=== PATIENT | male | born 1950 | race Caucasian/White ===

== ENCOUNTER 2020-07-18 16:02 | Outpatient (REF) | payer MEDICARE, SELFPAY | END 2020-07-18 16:03 | disposition home or self-care (01) | LOC: HO.LAB 16:02 | PROVIDERS: Visit Provider Nurse Practitioner Family | DX: N39.0 Urinary tract infection, site not specified (principal) | CPT/HCPCS: 87086; 87088; 87186 ==

== ENCOUNTER → 2020-11-13 14:53 | Outpatient (BNVA) | payer MEDICARE, SELFPAY | PROVIDERS: PCP Internal Medicine; Referring Provider Internal Medicine; Visit Provider Nurse Practitioner Family | DX: R09.89 Other specified symptoms and signs involving the circulatory and respiratory systems (principal); R06.02 Shortness of breath; Z98.890 Other specified postprocedural states | CPT/HCPCS: 93005; 99212 ==

== ENCOUNTER 2020-11-28 14:24 | Outpatient (REF) | payer MEDICARE, SELFPAY ==
--- NOTE | ~2020-11-28 | US_ITS ---
EXAMINATION: US EXTRACRANIAL CAROTID DUPLEX, BILATERAL CLINICAL INFORMATION: Carotid bruit. COMPARISON: None TECHNIQUE: Real-time ultrasound and Doppler techniques (integrating B-mode 2-D vascular images, Doppler spectral analysis and color-flow Doppler imaging) were utilized to interrogate the extracranial carotid arteries, the vertebral arteries and proximal subclavian arteries bilaterally. The degree of stenosis is determined by criteria similar to NASCET. FINDINGS: Right Side: 1. There is no atherosclerotic plaque seen in the bifurcation/proximal ICA region. 2. The common carotid artery PSV proximally is 105 cm/s and distally 79 cm/s. 3. The proximal internal carotid artery velocities are 84 cm/s systolic and 30 cm/s diastolic. 4. The proximal external carotid artery PSV is 116 cm/s. 5. The vertebral artery shows antegrade flow. 6. The subclavian artery waveforms are normal. Left Side: 1. There is no atherosclerotic plaque seen in the bifurcation/proximal ICA region. 2. The common carotid artery PSV proximally is 111 cm/s and distally 86 cm/s. 3. The proximal internal carotid artery velocities are 60 cm/s systolic and 23 cm/s diastolic. 4. The proximal external carotid artery PSV is 88 cm/s. 5. The vertebral artery shows antegrade flow. 6. The subclavian artery waveforms are normal. US/US carotid duplex BI IMPRESSION: 1. RIGHT: Normal right internal carotid artery without atherosclerotic plaque or hemodynamically significant stenosis. 2. LEFT: Normal left internal carotid artery without atherosclerotic plaque or hemodynamically significant stenosis.
== END 2020-11-28 14:25 | disposition home or self-care (01) ==
LOC: HO.US 14:24
PROVIDERS: PCP Internal Medicine; Visit Provider Nurse Practitioner Family
DX: R09.89 Other specified symptoms and signs involving the circulatory and respiratory systems (principal); R06.02 Shortness of breath
CPT/HCPCS: 93880

== ENCOUNTER 2021-10-05 11:12 | Outpatient (REF) | payer MEDICARE, SELFPAY ==
[2021-10-05 13:47] LABS: MANUAL DIFF FLAG NO
[2021-10-05 13:49] LABS: Basophils Percent Auto 0.8 % (0-2); Eosinophils Absolute Auto 0.1 X10*3/uL (0.0-0.4); Eosinophils Percent Auto 1.7 % (0-4); Hemoglobin 14.6 g/dl (14.0-18.0); Imm Gran Abs Auto 0.02 X10*3/uL (0.00-0.03); Imm Gran Pct Auto 0.4 % (0.0-0.4); Lymphocytes Absolute Auto 1.1 X10*3/uL (1.2-4.9); Lymphocytes Percent Auto 20.7 % (20-40); Mean Corpuscular HGB Conc 33.2 g/dl (31.0-36.0); Mean Corpuscular Hemoglobin 29.7 pg (27.0-33.0); Mean Corpuscular Volume 89.4 fL (80.0-98.0); Mean Platelet Volume 10.9 fL (9.4-12.4); Monocytes Absolute Auto 0.5 X10*3/uL (0.1-1.2); Neutrophils Absolute Auto 3.5 x10*3/uL (2.0-8.3); Neutrophils Percent Auto 67.4 % (45-73); Platelet Count 219 X10*3/uL (160-400); Red Blood Count 4.92 X10*6/uL (4.60-5.80); Red Cell Distribution Width 13.7 % (11.0-16.0); White Blood Count 5.2 X10*3/uL (4.8-10.8)
[2021-10-05 14:03] LABS: Alanine Aminotransferase 16 U/L (0-40); Albumin Level 4.1 g/dL (3.5-5.0); Alkaline Phosphatase 94 U/L (39-117); Anion Gap 11 (12-20); Aspartate Amino Transferase 18 U/L (5-37); Bilirubin Total 0.9 mg/dL (0.0-1.0); Blood Urea Nitrogen 25 mg/dL (9-16); Calcium 9.2 mg/dL (8.4-10.2); Carbon Dioxide 26 mmol/L (22-29); Chloride 109 mmol/L (96-108); Cholesterol 190 mg/dL; Estimated Glomerular Filt Rate > 60; Glucose Fasting 115 mg/dL (60-99); HDL Cholesterol 39 mg/dL; LDL Cholesterol Calculated 139 mg/dl; Sodium 141 mmol/L (135-145); Total Protein 6.8 g/dL (6.5-8.0); Triglycerides 62 mg/dL
[2021-10-05 14:26] LABS: Prostate Specific Antigen 0.81 ng/mL (<0.05-4.0); TSH reflex Free T4 1.32 uIU/mL (0.32-4.0)
== END 2021-10-05 11:13 | disposition home or self-care (01) ==
LOC: HO.HMGCLDS 11:12
PROVIDERS: PCP Internal Medicine; Visit Provider Internal Medicine
DX: Z00.01 Encounter for general adult medical examination with abnormal findings (principal); Z12.5 Encounter for screening for malignant neoplasm of prostate; D22.9 Melanocytic nevi, unspecified; E66.09 Other obesity due to excess calories; R03.0 Elevated blood-pressure reading, without diagnosis of hypertension
CPT/HCPCS: 36415; 80053; 80061; 84153; 84443; 85025

== ENCOUNTER 2022-01-11 13:25 | Outpatient (REF) | payer MEDICARE, SELFPAY ==
[2022-01-11 16:47] LABS: Estimated Average Glucose 114 mg/dL; Hemoglobin A1c % 5.6 %
[2022-01-11 16:53] LABS: Alanine Aminotransferase 14 U/L (0-40); Albumin Level 4.3 g/dL (3.5-5.0); Alkaline Phosphatase 97 U/L (39-117); Anion Gap 15 (12-20); Aspartate Amino Transferase 15 U/L (5-37); Bilirubin Total 0.6 mg/dL (0.0-1.0); Blood Urea Nitrogen 28 mg/dL (9-16); Calcium 9.8 mg/dL (8.4-10.2); Carbon Dioxide 26 mmol/L (22-29); Chloride 106 mmol/L (96-108); Estimated Glomerular Filt Rate > 60; Glucose Random 94 mg/dL (60-115); Potassium 4.8 mmol/L (3.3-5.1); Sodium 142 mmol/L (135-145); Total Protein 6.9 g/dL (6.5-8.0)
== END 2022-01-11 13:26 | disposition home or self-care (01) ==
LOC: HO.HMGCLDS 13:25
PROVIDERS: PCP Internal Medicine; Visit Provider Internal Medicine
DX: I10 Essential (primary) hypertension (principal); R73.01 Impaired fasting glucose
CPT/HCPCS: 36415; 80053; 83036

== ENCOUNTER 2022-10-04 09:33 | Outpatient (REF) | payer MEDICARE, SELFPAY ==
[2022-10-04 11:29] LABS: MANUAL DIFF FLAG NO
[2022-10-04 11:37] LABS: Basophils Percent Auto 0.6 % (0-2); Eosinophils Absolute Auto 0.1 X10*3/uL (0.0-0.4); Eosinophils Percent Auto 1.2 % (0-4); Hematocrit 42.8 % (42.0-52.0); Hemoglobin 14.4 g/dl (14.0-18.0); Imm Gran Abs Auto 0.03 X10*3/uL (0.00-0.03); Imm Gran Pct Auto 0.5 % (0.0-0.4); Lymphocytes Absolute Auto 1.2 X10*3/uL (1.2-4.9); Lymphocytes Percent Auto 18.2 % (20-40); Mean Corpuscular HGB Conc 33.6 g/dl (31.0-36.0); Mean Corpuscular Hemoglobin 30.1 pg (27.0-33.0); Mean Corpuscular Volume 89.5 fL (80.0-98.0); Mean Platelet Volume 11.1 fL (9.4-12.4); Monocytes Absolute Auto 0.4 X10*3/uL (0.1-1.2); Neutrophils Absolute Auto 4.8 x10*3/uL (2.0-8.3); Neutrophils Percent Auto 73.5 % (45-73); Platelet Count 208 X10*3/uL (160-400); Red Blood Count 4.78 X10*6/uL (4.60-5.80); White Blood Count 6.5 X10*3/uL (4.8-10.8)
[2022-10-04 12:08] LABS: Alanine Aminotransferase 13 U/L (0-40); Albumin Level 3.9 g/dL (3.5-5.0); Alkaline Phosphatase 92 U/L (39-117); Anion Gap 12 (12-20); Aspartate Amino Transferase 16 U/L (5-37); Blood Urea Nitrogen 21 mg/dL (9-16); Calcium 9.5 mg/dL (8.4-10.2); Carbon Dioxide 25 mmol/L (22-29); Chloride 108 mmol/L (96-108); Cholesterol 178 mg/dL; Estimated Glomerular Filt Rate > 60; Glucose Fasting 109 mg/dL (60-99); HDL Cholesterol 41 mg/dL; LDL Cholesterol Calculated 123 mg/dl; Potassium 4.3 mmol/L (3.3-5.1); Sodium 141 mmol/L (135-145); Total Protein 6.7 g/dL (6.5-8.0); Triglycerides 74 mg/dL
[2022-10-04 12:11] LABS: Estimated Average Glucose 108 mg/dL; Hemoglobin A1c % 5.4 %
== END 2022-10-04 09:34 | disposition home or self-care (01) ==
LOC: HO.HMGCLDS 09:33
PROVIDERS: PCP Internal Medicine; Visit Provider Internal Medicine
DX: Z00.01 Encounter for general adult medical examination with abnormal findings (principal); E66.09 Other obesity due to excess calories; R73.01 Impaired fasting glucose; I10 Essential (primary) hypertension
CPT/HCPCS: 36415; 80053; 80061; 83036; 85025

== ENCOUNTER 2023-03-21 08:06 | Outpatient (AMB) | payer MEDICARE, SELFPAY ==
[2023-03-21 08:10] VITALS: BP 126/74; PULSE 52; O2SAT 99; BMI 35.3
--- NOTE | 2023-03-21 08:10 | MHC.PC.OV ---
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 Accompanied by: Self / Same As Patient Allergies No Known Allergies [No Known Allergies*] Allergy (Verified 03/21/23 08:12) Medication List - Last Reconciled 03/21/23 by Raudel Jones MD atenolol 25 mg PO DAILY 90 days Tobacco use date assessed: 03/21/23 Fall risk assessment: No Falls in past year Last assessed Fall Risk: 03/21/23 Dental Screening Dental Screen Date: 03/21/23 Did you have a dental visit in the last 12 months?: No Did you have a dental problem in the last 6 months where you did not have access to dental care?: No Was dental information given to patient?: Patient declined HPI 6 month follow up HPI Details Patient is a 72-year-old gentleman came in today for six-month follow-up appointment on blood pressure He is taking atenolol 25 mg, blood pressure is stable heart rate is 52 His BMI is elevated at 35.9 and he tells me that he is trying to lose weight. Impaired fasting sugar stable, due for labs Continued to feel slight shortness of breath if he exerts himself like jogging happened mi or walking fast Patient had a cardiac workup and pulmonary function test done for that symptom and they were both negative. Follow-up 6 months [facility] Surgical History Hx of tonsillectomy History of cholecystectomy History of colonoscopy History of cardiac cath Family History Father CAD (coronary artery disease) Heart attack Mother Colon cancer Brother Diabetes Social History Housing: House Alcohol intake: current Alcohol intake frequency: holidays/special occasions only Alcohol type: beer and hard liquor Patient Tobacco Use Status: Former Tobacco user Quit Date: 1999 Years Smoked: 20 +/- e-Cigarette/Vaping Use: Never Used service: No Current occupational status: retired Cognitive needs: No Hearing needs: No Vision needs: Yes Questionnaire PHQ-9 Over the last 2 weeks, how often have you been bothered by any of the following problems? 1. Little interest or pleasure in doing things: not at all 2. Feeling down, depressed, or hopeless: not at all 3. Trouble falling or staying asleep, or sleeping too much: not at all 4. Feeling tired or having little energy: not at all 5. Poor appetite or overeating: not at all 6. Feeling bad about yourself - or that you are a failure or have let yourself or your family down: not at all 7. Trouble concentrating on things, such as reading the newspaper or watching television: not at all 8. Moving or speaking so slowly that other people could have noticed. Or the opposite - being so fidgety or restless that you have been moving around a lot more than usual: not at all 9. Thoughts that you would be better off or of hurting yourself in some way: not at all Total score: 0 Depression Screening Interpretation: Negative Depression Screening Done: Yes 34745 - PHQ-9 Billing: Yes Source: Developed by Drs. Alen River, Guillermina Meza, Zheng Nova and colleagues, with an educational alison from [employer]. Thrive Questionnaire Date Thrive assessed: 03/21/23 I am a: Patient What is your living situation today?: I have a steady place to live Within the past 12 months, did the food you bought not last and you didn't have the money to get more?: Never true Within the past 12 months, did you worry whether your food would run out before you got money to buy more?: Never true Do you have trouble paying for medicines?: No Do you have trouble getting transportation to medical appointments?: No Do you have trouble paying your heating and electricity bill?: No Do you have trouble taking care of your child, family member or friend?: No Do you have trouble with day-to-day activities such as bathing, preparing meals, shopping, managing finances, etc.?: No Are you currently unemployed and looking for a job?: No Are you interested in more education?: No Please select the resources that you would like help with: None Currently or been in a relationship where the following occur: no concerns reported AUDIT C Alcohol Use Questionnaire (AUDIT-C) 1. How often do you have a drink containing alcohol?: Monthly or less 2. How many drinks containing alcohol do you have on a typical day when you are drinking?: 1 or 2 3. How often do you have six or more drinks on one occasion?: Never Total Score: 1 Score Reviewed/Action Taken: Yes RUSSELL-7 AMB Questionnaire RUSSELL-7 Date RUSSELL - 7 assessed: 06/12/22 Feeling nervous, anxious, or on edge: 0 = Not at all Not being able to stop or control worryin = Not at all Worrying too much about different things: 0 = Not at all Trouble relaxin = Not at all Being so restless that it is hard to sit still: 0 = Not at all Becoming easily annoyed or irritable: 0 = Not at all Feeling afraid as if something awful might happen: 0 = Not at all Total RUSSELL-7 score (0-4 normal; 5-9 mild; 10-14 moderate; 15-21 severe): 0 Source: Developed by Drs. Alen River, Guillermina Meza, Zheng Nova and colleagues, with an educational alison from [employer]. RUSSELL-7 Assessment Billing RUSSELL-7 Assessment Tool: RUSSELL-7 Assessment 77166 Review of Systems Const Denies chills and Denies fever(s) ENT Denies epistaxis and Denies nasal discharge Card Denies chest pain Resp Denies chest congestion, Denies cough and Denies hemoptysis GI Denies diarrhea and Denies nausea Skin/Breast Denies rash Neuro Reports no additional complaints Psych Reports no additional complaints Endo Reports no additional complaints Physical exam (Primary Care) Vital Signs: Last Vital Signs Pulse 52 03/21/23 08:10 BP 126/74 03/21/23 08:10 Pulse Ox 99 03/21/23 08:10 Oxygen Delivery Method Room Air 03/21/23 08:10 BMI result Body Mass Index 35.3 Tobacco/Smoking Status: Tobacco use Status Tobacco use date assessed 03/21/23 03/21/23 08:15 Patient Tobacco Use Status Former Tobacco user 03/21/23 08:10 e-Cigarette/Vaping Use Never Used 03/21/23 08:10 PHQ-9: PHQ-9 Score PHQ-9: Total score 0 03/21/23 08:30 Depression Screening Interpretation: Negative Thrive Assessment: Date of Thrive Assessment Date Thrive assessed 03/21/23 03/21/23 08:15 Currently or been in a relationship where the following occur: no concerns reported Const General: cooperative, comfortable and no acute distress Orientation/consciousness: patient oriented x3 HENMT Head: Yes normocephalic Eyes General: appearance normal, both eyes and all related structures Neck Neck: Yes supple Resp Effort & Inspection: normal respiratory effort, no cough and no stridor Cardio Rhythm: regular rhythm Heart sounds: S1 normal heart sound present and S2 normal heart sound present Skin General skin exam: turgor normal Neuro General: patient oriented x3, tone normal and moves all extremities Extrem Right lower extremity: no edema Left lower extremity: no edema Assessment and Plan Assessment & Plan (1) Hypertension, essential: Code(s): I10 - Essential (primary) hypertension (2) Impaired fasting blood sugar: Code(s): R73.01 - Impaired fasting glucose (3) Obesity due to excess calories: Code(s): E66.09 - Other obesity due to excess calories Qualifiers: Body mass index: BMI 35.0-35.9 Obesity classification: adult class 2 (BMI 35 - 39.9) Serious obesity comorbidity presence: with serious comorbidity Qualified Code(s): E66.01 - Morbid (severe) obesity due to excess calories; Z68.35 - Body mass index [BMI] 35.0-35.9, adult (4) Shortness of breath: Code(s): R06.02 - Shortness of breath Plan Patient is a 72-year-old gentleman came in today for six-month follow-up appointment on blood pressure He is taking atenolol 25 mg, blood pressure is stable heart rate is 52 His BMI is elevated at 35.9 and he tells me that he is trying to lose weight. Impaired fasting sugar stable, due for labs Continued to feel slight shortness of breath if he exerts himself like jogging happened mi or walking fast Patient had a cardiac workup and pulmonary function test done for that symptom and they were both negative. Follow-up 6 months Orders: Orders Complete Blood Count Auto Diff 6 Months I10 - Essential (primary) hypertension, R73.01 - Impaired fasting glucose Comprehensive [place]. Panel Fast 6 Months I10 - Essential (primary) hypertension, R73.01 - Impaired fasting glucose Complete Blood Count Auto Diff Today E66.09 - Other obesity due to excess calories, I10 - Essential (primary) hypertension, R06.02 - Shortness of breath, R73.01 - Impaired fasting glucose Comprehensive [place]. Panel Fast Today E66.09 - Other obesity due to excess calories, I10 - Essential (primary) hypertension, R06.02 - Shortness of breath, R73.01 - Impaired fasting glucose Lipid Panel Today E66.09 - Other obesity due to excess calories, I10 - Essential (primary) hypertension, R06.02 - Shortness of breath, R73.01 - Impaired fasting glucose Lipid Panel 6 Months I10 - Essential (primary) hypertension, R73.01 - Impaired fasting glucose Medications: Refilled atenolol 25 mg PO DAILY 90 tabs 1RF 90 days Coding Level of Care Code Est Pt Level 3 (50490) Diagnoses Hypertension, essential I10 Impaired fasting blood sugar R73.01 Class 2 severe obesity due to excess calories with serious comorbidity and body mass index (BMI) of 35.0 to 35.9 in adult E66.01; Z68.35 Body mass index: BMI 35.0-35.9 Obesity classification: adult class 2 (BMI 35 - 39.9) Serious obesity comorbidity presence: with serious comorbidity Shortness of breath R06.02 Additional Codes RUSSELL-7 Assessment Billing - RUSSELL-7 Assessment Tool: RUSSELL-7 Assessment 53779 ([id number])
== END 2023-03-21 08:29 | disposition home or self-care (01) ==
PROVIDERS: PCP Internal Medicine; Visit Provider Internal Medicine
DX: I10 Essential (primary) hypertension (principal); R73.01 Impaired fasting glucose; E66.01 Morbid (severe) obesity due to excess calories; Z68.35 Body mass index [BMI] 35.0-35.9, adult; R06.02 Shortness of breath
CPT/HCPCS: 99213

== ENCOUNTER 2023-03-21 08:30 | Outpatient (REF) | payer MEDICARE, SELFPAY ==
[2023-03-21 11:19] LABS: MANUAL DIFF FLAG NO
[2023-03-21 11:26] LABS: Basophils Percent Auto 0.6 % (0-2); Eosinophils Absolute Auto 0.1 X10*3/uL (0.0-0.4); Eosinophils Percent Auto 1.5 % (0-4); Hematocrit 42.1 % (42.0-52.0); Hemoglobin 14.1 g/dl (14.0-18.0); Imm Gran Abs Auto 0.03 X10*3/uL (0.00-0.03); Imm Gran Pct Auto 0.4 % (0.0-0.4); Lymphocytes Absolute Auto 1.1 X10*3/uL (1.2-4.9); Lymphocytes Percent Auto 15.8 % (20-40); Mean Corpuscular HGB Conc 33.5 g/dl (31.0-36.0); Mean Corpuscular Hemoglobin 30.2 pg (27.0-33.0); Mean Corpuscular Volume 90.1 fL (80.0-98.0); Mean Platelet Volume 10.8 fL (9.4-12.4); Monocytes Absolute Auto 0.5 X10*3/uL (0.1-1.2); Monocytes Percent Auto 7.3 % (2-11); Neutrophils Absolute Auto 5.3 x10*3/uL (2.0-8.3); Neutrophils Percent Auto 74.4 % (45-73); Platelet Count 203 X10*3/uL (160-400); Red Blood Count 4.67 X10*6/uL (4.60-5.80); Red Cell Distribution Width 13.2 % (11.0-16.0); White Blood Count 7.2 X10*3/uL (4.8-10.8)
[2023-03-21 11:53] LABS: Alanine Aminotransferase 13 U/L (0-40); Alkaline Phosphatase 92 U/L (39-117); Anion Gap 14 (12-20); Aspartate Amino Transferase 16 U/L (5-37); Bilirubin Total 0.6 mg/dL (0.0-1.0); Blood Urea Nitrogen 21 mg/dL (9-16); Calcium 9.2 mg/dL (8.4-10.2); Carbon Dioxide 26 mmol/L (22-29); Chloride 108 mmol/L (96-108); Cholesterol 162 mg/dL (<200); Estimated Glomerular Filt Rate > 60; Glucose Fasting 113 mg/dL (60-99); HDL Cholesterol 42 mg/dL (>40); LDL Cholesterol Calculated 109 mg/dL (<100); Potassium 4.1 mmol/L (3.3-5.1); Sodium 144 mmol/L (135-145); Total Protein 6.9 g/dL (6.5-8.0); Triglycerides 58 mg/dL (<150)
== END 2023-03-21 08:31 | disposition home or self-care (01) ==
LOC: HO.HMGCLDS 08:30
PROVIDERS: PCP Internal Medicine; Visit Provider Internal Medicine
DX: I10 Essential (primary) hypertension (principal); R73.01 Impaired fasting glucose; E66.09 Other obesity due to excess calories; R06.02 Shortness of breath
CPT/HCPCS: 36415; 80053; 80061; 85025

== ENCOUNTER 2023-10-03 09:16 | Outpatient (REF) | payer MEDICARE, SELFPAY ==
[2023-10-03 11:21] LABS: MANUAL DIFF FLAG NO
[2023-10-03 11:26] LABS: Basophils Absolute Auto 0.1 X10*3/uL (0.0-0.2); Basophils Percent Auto 0.7 % (0-2); Eosinophils Absolute Auto 0.2 X10*3/uL (0.0-0.4); Eosinophils Percent Auto 1.8 % (0-4); Hematocrit 41.8 % (42.0-52.0); Imm Gran Abs Auto 0.06 X10*3/uL (0.00-0.03); Imm Gran Pct Auto 0.7 % (0.0-0.4); Lymphocytes Absolute Auto 1.6 X10*3/uL (1.2-4.9); Lymphocytes Percent Auto 17.7 % (20-40); Mean Corpuscular HGB Conc 33.5 g/dl (31.0-36.0); Mean Corpuscular Hemoglobin 29.9 pg (27.0-33.0); Mean Corpuscular Volume 89.3 fL (80.0-98.0); Mean Platelet Volume 10.1 fL (9.4-12.4); Monocytes Absolute Auto 0.6 X10*3/uL (0.1-1.2); Monocytes Percent Auto 6.1 % (2-11); Neutrophils Absolute Auto 6.7 x10*3/uL (2.0-8.3); Platelet Count 300 X10*3/uL (160-400); Red Blood Count 4.68 X10*6/uL (4.60-5.80); Red Cell Distribution Width 13.1 % (11.0-16.0); White Blood Count 9.1 X10*3/uL (4.8-10.8)
[2023-10-03 11:48] LABS: Alanine Aminotransferase 19 U/L (0-40); Alkaline Phosphatase 130 U/L (39-117); Anion Gap 11 (12-20); Aspartate Amino Transferase 18 U/L (5-37); Bilirubin Total 0.5 mg/dL (0.0-1.0); Blood Urea Nitrogen 27 mg/dL (9-16); Calcium 9.6 mg/dL (8.4-10.2); Carbon Dioxide 26 mmol/L (22-29); Chloride 107 mmol/L (96-108); Cholesterol 197 mg/dL (<200); Estimated Glomerular Filt Rate > 60; Glucose Fasting 107 mg/dL (60-99); HDL Cholesterol 45 mg/dL (>40); LDL Cholesterol Calculated 130 mg/dL (<100); Potassium 4.3 mmol/L (3.3-5.1); Sodium 140 mmol/L (135-145); Total Protein 7.3 g/dL (6.5-8.0); Triglycerides 112 mg/dL (<150)
== END 2023-10-03 09:17 | disposition home or self-care (01) ==
LOC: HO.HMGCLDS 09:16
PROVIDERS: PCP Internal Medicine; Visit Provider Internal Medicine
DX: R73.01 Impaired fasting glucose (principal); I10 Essential (primary) hypertension
CPT/HCPCS: 36415; 80053; 80061; 85025

== ENCOUNTER 2023-10-03 09:28 | Outpatient (AMB) | payer MEDICARE, SELFPAY ==
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
[2023-10-03 09:37] VITALS: BP 138/82; PULSE 62; O2SAT 98; BMI 36.3
== END 2023-10-03 10:36 | disposition home or self-care (01) ==
PROVIDERS: PCP Internal Medicine; Visit Provider Internal Medicine
DX: N28.89 Other specified disorders of kidney and ureter (principal); Z09 Encounter for follow-up examination after completed treatment for conditions other than malignant neoplasm; S28.0XXA Crushed chest, initial encounter; L03.115 Cellulitis of right lower limb; T07.XXXA Unspecified multiple injuries, initial encounter; S80.11XA Contusion of right lower leg, initial encounter; S80.12XA Contusion of left lower leg, initial encounter
CPT/HCPCS: 99215

== ENCOUNTER 2023-10-17 10:03 | Outpatient (AMB) | payer MEDICARE, SELFPAY ==
--- NOTE | 2023-10-17 10:05 | A.OFFPC_ITS ---
Vital Signs 10/17/23 10:06 Height 6 ft Weight 274 lb 8 oz BMI 37.2 BP 144/72 H Blood Pressure Location Rt brachial Position Sitting Pulse 55 Pulse Source Pulse Oximeter Pulse Oximetry (%) 95 Oxygen Delivery Method Room Air Intake Visit Reasons: annual PE Allergies No Known Allergies [No Known Allergies*] Allergy (Verified 10/17/23 10:06) Medication List - Last Reconciled 10/17/23 by Raudel Jones MD acetaminophen 325 mg PO QID PRN atenolol 25 mg PO DAILY 90 days Tobacco use date assessed: 10/17/23 Fall risk assessment: No Falls in past year Last assessed Fall Risk: 10/17/23 Dental Screening Dental Screen Date: 10/17/23 Did you have a dental visit in the last 12 months?: Yes Did you have a dental problem in the last 6 months where you did not have access to dental care?: No Was dental information given to patient?: Patient has dentist HPI annual PE HPI Details Patient is a 73-year-old gentleman came in today for physical exam Blood pressure is slightly elevated today, patient is on atenolol 25 mg Is monitoring it at home and it runs below 140 systolic he tells me Labs done recently reviewed Patient is prediabetic, fasting sugar came back at 01:07 Has recently encountered multiple crush injury at work He is recovering gradually Alkaline phosphatase is 130 LDL is 130 BMI is elevated patient is having difficulty losing weight In emergency room when he went after crush injuries Imaging showed 6 cm mass left kidney I ordered MRI abdomen which is still not done I have ordered stat ultrasound of kidneys He has appointment with Nephrology already scheduled for this month Patient is aware Colonoscopy was October of 2020 next 1 will be in 2025 Follow-up 6 months [facility] Surgical History Hx of tonsillectomy History of cholecystectomy History of colonoscopy History of cardiac cath Family History Father CAD (coronary artery disease) Heart attack Mother Colon cancer Brother Diabetes Social History Housing: House Alcohol intake: current Alcohol intake frequency: holidays/special occasions only Alcohol type: beer and hard liquor Patient Tobacco Use Status: Former Tobacco user Years Smoked: 20 +/- e-Cigarette/Vaping Use: Never Used service: No Current occupational status: retired Cognitive needs: No Hearing needs: No Vision needs: Yes Questionnaire PHQ-9 Over the last 2 weeks, how often have you been bothered by any of the following problems? 1. Little interest or pleasure in doing things: not at all 2. Feeling down, depressed, or hopeless: not at all 3. Trouble falling or staying asleep, or sleeping too much: not at all 4. Feeling tired or having little energy: not at all 5. Poor appetite or overeating: not at all 6. Feeling bad about yourself - or that you are a failure or have let yourself or your family down: not at all 7. Trouble concentrating on things, such as reading the newspaper or watching television: not at all 8. Moving or speaking so slowly that other people could have noticed. Or the opposite - being so fidgety or restless that you have been moving around a lot more than usual: not at all 9. Thoughts that you would be better off or of hurting yourself in some way: not at all Total score: 0 Depression Screening Interpretation: Negative Depression Screening Done: Yes 74497 - PHQ-9 Billing: Yes Source: Developed by Drs. Alen River, Guillermina Meza, Zheng Nova and colleagues, with an educational alison from [employer]. Thrive Questionnaire Date Thrive assessed: 10/17/23 I am a: Patient What is your living situation today?: I have a steady place to live Within the past 12 months, did the food you bought not last and you didn't have the money to get more?: Never true Within the past 12 months, did you worry whether your food would run out before you got money to buy more?: Never true Do you have trouble paying for medicines?: No Do you have trouble getting transportation to medical appointments?: No Do you have trouble paying your heating and electricity bill?: No Do you have trouble taking care of your child, family member or friend?: No Do you have trouble with day-to-day activities such as bathing, preparing meals, shopping, managing finances, etc.?: No Are you currently unemployed and looking for a job?: No Are you interested in more education?: No Please select the resources that you would like help with: None Currently or been in a relationship where the following occur: No concerns reported THRIVE Score: 0 AUDIT C Alcohol Use Questionnaire (AUDIT-C) 1. How often do you have a drink containing alcohol?: Monthly or less 2. How many drinks containing alcohol do you have on a typical day when you are drinking?: 1 or 2 3. How often do you have six or more drinks on one occasion?: Less than monthly Total Score: 2 Score Reviewed/Action Taken: Yes RUSSELL-7 AMB Questionnaire RUSSELL-7 Date RUSSELL - 7 assessed: 10/17/23 Feeling nervous, anxious, or on edge: 0 = Not at all Not being able to stop or control worryin = Not at all Worrying too much about different things: 0 = Not at all Trouble relaxin = Not at all Being so restless that it is hard to sit still: 0 = Not at all Becoming easily annoyed or irritable: 0 = Not at all Feeling afraid as if something awful might happen: 0 = Not at all Total RUSSELL-7 score (0-4 normal; 5-9 mild; 10-14 moderate; 15-21 severe): 0 Source: Developed by Drs. Alen River, Guillermina Meza, Zheng Nova and colleagues, with an educational alison from [employer]. RUSSELL-7 Assessment Billing RUSSELL-7 Assessment Tool: RUSSELL-7 Assessment 71169 Review of Systems Const Denies chills, Denies fever(s) and Denies headache(s) Eyes Denies blurry vision ENT Denies headache(s), Denies nasal discharge, Denies nasal obstruction, Denies odynophagia and Denies sinus pain Card Denies chest pain with activity Resp Denies cough and Denies hemoptysis GI Denies diarrhea, Denies odynophagia, Denies vomiting and Denies hematemesis Reports as per HPI Musc Denies abnormal gait Skin/Breast Reports as per HPI Neuro Denies Neuro-related abnormal movements, Denies Abnormal speech present, Denies abnormal gait, Denies headache(s) and Denies Sensory deficit (Neuro) Psych Denies mood swings and Denies paranoia Endo Reports as per HPI Eduin/Lymph Reports as per HPI Aller/Immun Reports as per HPI Physical exam (Primary Care) Vital Signs: Last Vital Signs Pulse 55 10/17/23 10:06 BP 144/72 H 10/17/23 10:06 Pulse Ox 95 10/17/23 10:06 Oxygen Delivery Method Room Air 10/17/23 10:06 BMI result Body Mass Index 37.2 Tobacco/Smoking Status: Tobacco use Status Tobacco use date assessed 10/17/23 10/17/23 10:14 Patient Tobacco Use Status Former Tobacco user 10/17/23 10:14 e-Cigarette/Vaping Use Never Used 10/17/23 10:14 PHQ-9: PHQ-9 Score PHQ-9: Total score 0 10/17/23 10:14 Depression Screening Interpretation: Negative Thrive Assessment: Date of Thrive Assessment Date Thrive assessed 10/17/23 10/17/23 10:14 Currently or been in a relationship where the following occur: No concerns reported Const General: cooperative, comfortable and no acute distress Orientation/consciousness: patient oriented x3 HENMT Head: Yes normocephalic and Yes atraumatic Eyes General: appearance normal, both eyes and all related structures Pupils: Equal, round and reactive pupils present EOM: EOMs intact bilaterally Neck Neck: Yes supple and No lymphadenopathy Thyroid: Thyroid normal Lymphatic: no lymphadenopathy noted Resp Effort & Inspection: normal respiratory effort and able to speak in complete sentences Auscultation: clear to auscultation bilaterally Cardio Heart sounds: S1 normal heart sound present and S2 normal heart sound present GI Palpation (GI): Soft to palpation and nontender Auscultation: normal bowel sounds General: Yes no CVA tenderness Back/Spine/Pelvis Back: no CVA tenderness Skin General skin exam: elasticity normal and turgor normal Neuro General: patient oriented x3 and gait normal Cranial nerves: Yes Equal, round and reactive pupils present Speech: No Abnormal speech present Sensory Exam: No Sensory deficit (Neuro) Coordination: tandem gait normal and Romberg test negative Extrem Other: Multiple abrasions and skin injury both lower legs chest and left shoulder healing well General: Yes normal exam except as noted and No edema Assessment and Plan Assessment & Plan (1) Encounter for general adult medical examination with abnormal findings: Code(s): Z00.01 - Encounter for general adult medical examination with abnormal findings (2) Renal mass, left: Code(s): N28.89 - Other specified disorders of kidney and ureter (3) Hypertension, essential: Code(s): I10 - Essential (primary) hypertension (4) Traumatic ecchymosis of left lower leg: Code(s): S80.12XA - Contusion of left lower leg, initial encounter Qualifiers: Encounter type: initial encounter Qualified Code(s): S80.12XA - Contusion of left lower leg, initial encounter (5) Traumatic ecchymosis of right lower leg: Code(s): S80.11XA - Contusion of right lower leg, initial encounter Qualifiers: Encounter type: initial encounter Qualified Code(s): S80.11XA - Contusion of right lower leg, initial encounter (6) Abrasion, multiple sites: Code(s): T07.XXXA - Unspecified multiple injuries, initial encounter (7) Obesity due to excess calories: Code(s): E66.09 - Other obesity due to excess calories Qualifiers: Body mass index: BMI 35.0-35.9 Obesity classification: adult class 2 (BMI 35 - 39.9) Serious obesity comorbidity presence: with serious comorbidity Qualified Code(s): E66.01 - Morbid (severe) obesity due to excess calories; Z68.35 - Body mass index [BMI] 35.0-35.9, adult Plan Patient is a 73-year-old gentleman came in today for physical exam Blood pressure is slightly elevated today, patient is on atenolol 25 mg Is monitoring it at home and it runs below 140 systolic he tells me Labs done recently reviewed Patient is prediabetic, fasting sugar came back at 01:07 Has recently encountered multiple crush injury at work He is recovering gradually Alkaline phosphatase is 130 LDL is 130 BMI is elevated patient is having difficulty losing weight In emergency room when he went after crush injuries Imaging showed 6 cm mass left kidney I ordered MRI abdomen which is still not done I have ordered stat ultrasound of kidneys He has appointment with Nephrology already scheduled for this Patient is aware Colonoscopy was October of 2020 next 1 will be in 2025 Follow-up 6 months Orders: Orders US renal BI Today N28.89 - Other specified disorders of kidney and ureter Coding Level of Care Code Est Pt Level 3 (38027) Est Pt Prev Care >65y(04790) Diagnoses Encounter for general adult medical examination with abnormal findings Z00.01 Renal mass, left N28.89 Hypertension, essential I10 Traumatic ecchymosis of left lower leg, initial encounter S80.12XA Encounter type: initial encounter Traumatic ecchymosis of right lower leg, initial encounter S80.11XA Encounter type: initial encounter Abrasion, multiple sites T07.XXXA Class 2 severe obesity due to excess calories with serious comorbidity and body mass index (BMI) of 35.0 to 35.9 in adult E66.01; Z68.35 Body mass index: BMI 35.0-35.9 Obesity classification: adult class 2 (BMI 35 - 39.9) Serious obesity comorbidity presence: with serious comorbidity Additional Codes RUSSELL-7 Assessment Billing - RUSSELL-7 Assessment Tool: RUSSELL-7 Assessment 59937 ([id number])
[2023-10-17 10:06] VITALS: BP 144/72; PULSE 55; O2SAT 95; BMI 37.2
== END 2023-10-17 10:24 | disposition home or self-care (01) ==
PROVIDERS: PCP Internal Medicine; Visit Provider Internal Medicine
DX: Z00.00 Encounter for general adult medical examination without abnormal findings (principal); N28.89 Other specified disorders of kidney and ureter; I10 Essential (primary) hypertension; E66.01 Morbid (severe) obesity due to excess calories; Z68.35 Body mass index [BMI] 35.0-35.9, adult
CPT/HCPCS: 99213; 99397

== ENCOUNTER 2023-10-17 13:54 | Outpatient (REF) | payer MEDICARE, SELFPAY ==
--- NOTE | ~2023-10-17 | US_ITS ---
EXAMINATION: US RETROPERITONEAL LIMITED (RENAL ONLY) CLINICAL INFORMATION: Evaluate for renal mass. COMPARISON: None available. TECHNIQUE: Targeted sonographic evaluation of the retroperitoneum dedicated to kidneys FINDINGS: RIGHT KIDNEY: 11.3 x 5.6 x 6.3 cm (SAG x AP x TRV). The kidney is normal in size, contour, and echogenicity. Renal cortical thickness is normal. No calculi or focal parenchymal lesions. No hydronephrosis. There is interpolar 1.6 x 1.5 x 1.4 cm cyst LEFT KIDNEY: 12.3 x 6.9 x 4.9 cm (SAG x AP x TRV). The kidney is normal in size, contour, and echogenicity. Renal cortical thickness is normal. No calculi seen. No hydronephrosis. There is upper pole 4.7 x 6.3 x 6.0 cm solid of vascular mass with calcifications. Correlate with CT scan. US/US renal BI IMPRESSION: Cyst in the right kidney and mass in the left kidney, correlate with CT scan.
== END 2023-10-17 13:55 | disposition home or self-care (01) ==
LOC: HO.HMGCX 13:54
PROVIDERS: PCP Internal Medicine; Visit Provider Internal Medicine
DX: N28.89 Other specified disorders of kidney and ureter (principal)
CPT/HCPCS: 76775

== ENCOUNTER 2023-11-06 14:35 | Outpatient (AMB) | payer MEDICARE, SELFPAY ==
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
[2023-11-06 14:50] VITALS: BP 102/70; PULSE 77; O2SAT 92; BMI 35.4
== END 2023-11-06 15:27 | disposition home or self-care (01) ==
PROVIDERS: PCP Internal Medicine; Referring Provider Internal Medicine; Visit Provider Internal Medicine Nephrology
DX: I10 Essential (primary) hypertension (principal); N28.89 Other specified disorders of kidney and ureter; N28.1 Cyst of kidney, acquired
CPT/HCPCS: 99204

== ENCOUNTER → 2023-11-06 14:35 | Outpatient (BNVA) | payer MEDICARE, SELFPAY | PROVIDERS: PCP Internal Medicine; Referring Provider Internal Medicine; Visit Provider Internal Medicine Nephrology | DX: N28.89 Other specified disorders of kidney and ureter (principal); N28.1 Cyst of kidney, acquired; I10 Essential (primary) hypertension | CPT/HCPCS: 99202 ==

== ENCOUNTER 2023-11-07 14:50 | Outpatient (REF) | payer MEDICARE, SELFPAY ==
--- NOTE | ~2023-11-07 | MR_ITS ---
EXAMINATION: MR ABDOMEN WITHOUT AND WITH CONTRAST CLINICAL INFORMATION: 6 cm renal mass left side seen on CT scan COMPARISON: Renal ultrasound 10/17/2023. No prior CT images available for comparison. TECHNIQUE: MR abdomen was performed without and with use of 10 mL intravenous Gadavist. Postcontrast images are performed in multiphase dynamic sequences. Imaging was performed in 3 planes. FINDINGS: Exam is significantly limited due to motion artifact on multiple sequences. LUNG BASES: Patchy T2 hyperintense signal within the lung bases which may be secondary to atelectasis. LIVER, GALLBLADDER, AND BILIARY TREE: The liver demonstrates normal size and surface contour. There is mild signal drop on the out of phase images which can be seen with mild hepatic steatosis. No focal hepatic lesion within the limits of examination. The gallbladder is not visualized. There is no intra or extrahepatic biliary ductal dilatation. PANCREAS: Diffuse atrophy of the pancreas. There is a 2.2 cm lobulated T2 hyperintense lesion at the tail of the pancreas, 4:11. Evaluation of this lesion on the postcontrast images is limited due to significant motion artifact. No pancreatic ductal dilation. SPLEEN: Normal in size. No focal lesion. ADRENAL GLANDS: Unremarkable. KIDNEYS AND URETERS: There is an exophytic T1 predominantly hyperintense and T2 heterogeneous signal intensity mass in the lateral midpole of the left kidney measuring 6.4 x 4.8 mm in axial plane and up to 5.5 cm in vertical extent, 4:25 and 3:10. Evaluation for enhancement is limited due to intrinsic T1 hyperintense signal. No subtraction images available. No definite extension of this mass to the renal pelvis. No definite encasement of renal vasculature based on T2-weighted images, although evaluation of post contrast images is limited. Both kidneys are otherwise normal in size. Bilateral simple renal cortical cysts, for which no dedicated follow-up imaging is required. No hydronephrosis. GASTROINTESTINAL TRACT: No bowel obstruction. Scattered colonic diverticulosis. No ascites or fluid collection. ABDOMINAL WALL: No significant hernia is appreciated. LYMPH NODES: No abdominal lymphadenopathy. VASCULAR: The abdominal aorta is normal in caliber. OSSEOUS STRUCTURES: Degenerative changes of the visualized spine. MR/MR abdomen wo/w con IMPRESSION: Exam is significantly limited due to motion artifact on multiple sequences. Approximately 6.4 cm large exophytic T1 predominantly hyperintense and T2 heterogeneous signal intensity mass in the lateral midpole of the left kidney. Evaluation for enhancement is limited due to intrinsic T1 hyperintense signal. No subtraction images available.No definite extension of this mass to the renal pelvis. No definite encasement of renal vasculature based on T2-weighted images, although evaluation of post contrast images is limited. A repeat evaluation with dynamic postcontrast images with subtraction can be considered for better characterization. Diffuse atrophy of the pancreas. Suggestion of a lobulated 2.2 cm T2 hyperintense lesion in the tail of the pancreas. Evaluation of this lesion on the postcontrast images limited due to motion artifact. Scattered colonic diverticulosis. Electronically signed by: Zeus Fraga MD 12/16/2023 08:39 AM EDT
[2023-11-07] MEDS: gadobutroL 10 ML VIAL IVPUSH (15:59)
== END 2023-11-07 14:51 | disposition home or self-care (01) ==
LOC: HO.MRI 14:50
PROVIDERS: PCP Internal Medicine; Visit Provider Internal Medicine
DX: N28.89 Other specified disorders of kidney and ureter (principal)
CPT/HCPCS: 74183; A9585

== ENCOUNTER 2023-11-18 12:02 | Outpatient (AMB) | payer MEDICARE, SELFPAY ==
[2023-11-18 12:13] VITALS: BP 126/82; PULSE 59; O2SAT 98; BMI 34.2
--- NOTE | 2023-11-18 12:13 | MHC.PC.OV ---
Vital Signs 11/18/23 12:13 Height 6 ft Weight 252 lb 4 oz BMI 34.2 BP 126/82 Blood Pressure Location Lt brachial Position Sitting Pulse 59 Pulse Source Pulse Oximeter Pulse Oximetry (%) 98 Oxygen Delivery Method Room Air Intake Visit Reasons: Follow up for Covid and Pneumonia Allergies No Known Allergies [No Known Allergies*] Allergy (Verified 11/18/23 12:16) Medication List - Last Reconciled 11/18/23 by Raudel Jones MD acetaminophen 325 mg PO QID PRN apixaban (Eliquis) 5 mg PO BID metoprolol tartrate 50 mg PO BID Tobacco use date assessed: 11/18/23 Fall risk assessment: No Falls in past year Last assessed Fall Risk: 11/18/23 Dental Screening Dental Screen Date: 11/18/23 Did you have a dental visit in the last 12 months?: No Did you have a dental problem in the last 6 months where you did not have access to dental care?: No Was dental information given to patient?: No HPI Follow up for Covid and Pneumonia HPI Details Hospital discharge follow-up Patient is 73-year-old gentleman was admitted 10/29/2023 and discharged 11/03/2023 [facility] Admission diagnosis tachycardia shortness a breath pneumonia Patient was diagnosed with COVID a week before He was brought in to emergency room through EMT In emergency room his respiratory exam was notable for mildly labored respiration and tachypnea. 96% oxygen saturation on NRB 15 L Diffuse rhonchi bilateral During transportation patient's heart rate increased to 180s to 200s and was given 2 doses of diltiazem in the field His chest x-ray showed pneumonia D-dimer was also elevated, patient had CT angio EKG was absent for signs of ischemia CT angio came back negative patient was treated with antibiotics Patient was discharged with oral antibiotic script He is doing better still coughing up clear phlegm On examination today there is mild wheezing left lower lung I have sent albuterol inhaler for him he may use it up to 4 times a day as needed Heart rate is regular, patient is going in and out of AFib He is on Eliquis and metoprolol heart rate is controlled. Further management after the chest x-ray report [facility] Surgical History Hx of tonsillectomy History of cholecystectomy History of colonoscopy History of cardiac cath Family History Father CAD (coronary artery disease) Heart attack Mother Colon cancer Brother Diabetes Social History Housing: House Alcohol intake: current Alcohol intake frequency: holidays/special occasions only Alcohol type: beer and hard liquor Patient Tobacco Use Status: Former Tobacco user Years Smoked: 20 +/- e-Cigarette/Vaping Use: Never Used service: No Current occupational status: retired Cognitive needs: No Hearing needs: No Vision needs: Yes Questionnaire Thrive Questionnaire Date Thrive assessed: 11/18/23 I am a: Patient What is your living situation today?: I have a steady place to live Within the past 12 months, did the food you bought not last and you didn't have the money to get more?: Never true Within the past 12 months, did you worry whether your food would run out before you got money to buy more?: Never true Do you have trouble paying for medicines?: No Do you have trouble getting transportation to medical appointments?: No Do you have trouble paying your heating and electricity bill?: No Do you have trouble taking care of your child, family member or friend?: No Do you have trouble with day-to-day activities such as bathing, preparing meals, shopping, managing finances, etc.?: No Are you currently unemployed and looking for a job?: No Are you interested in more education?: No Please select the resources that you would like help with: None Currently or been in a relationship where the following occur: No concerns reported THRIVE Score: 0 AUDIT C Alcohol Use Questionnaire (AUDIT-C) 1. How often do you have a drink containing alcohol?: Monthly or less 2. How many drinks containing alcohol do you have on a typical day when you are drinking?: 1 or 2 3. How often do you have six or more drinks on one occasion?: Never Total Score: 1 Score Reviewed/Action Taken: Yes RUSSELL-7 AMB Questionnaire RUSSELL-7 Date RUSSELL - 7 assessed: 11/18/23 Feeling nervous, anxious, or on edge: 0 = Not at all Not being able to stop or control worryin = Not at all Worrying too much about different things: 0 = Not at all Trouble relaxin = Not at all Being so restless that it is hard to sit still: 0 = Not at all Becoming easily annoyed or irritable: 0 = Not at all Feeling afraid as if something awful might happen: 0 = Not at all Total RUSSELL-7 score (0-4 normal; 5-9 mild; 10-14 moderate; 15-21 severe): 0 Source: Developed by Drs. Alen River, Guillermina Meza, Zheng Nova and colleagues, with an educational alison from [employer] RUSSELL-7 Assessment Billing RUSSELL-7 Assessment Tool: RUSSELL-7 Assessment 28462 Review of Systems Const Denies chills and Denies fever(s) ENT Denies epistaxis and Denies nasal discharge Card Denies chest pain Resp Denies hemoptysis GI Denies diarrhea and Denies nausea Skin/Breast Denies rash Neuro Reports no additional complaints Psych Reports no additional complaints Endo Reports no additional complaints Physical exam (Primary Care) Vital Signs: Last Vital Signs Pulse 59 11/18/23 12:13 BP 126/82 11/18/23 12:13 Pulse Ox 98 11/18/23 12:13 Oxygen Delivery Method Room Air 11/18/23 12:13 BMI result Body Mass Index 34.2 Tobacco/Smoking Status: Tobacco use Status Tobacco use date assessed 11/18/23 11/18/23 12:16 Patient Tobacco Use Status Former Tobacco user 11/18/23 12:16 e-Cigarette/Vaping Use Never Used 11/18/23 12:16 Thrive Assessment: Date of Thrive Assessment Date Thrive assessed 11/18/23 11/18/23 12:16 Currently or been in a relationship where the following occur: No concerns reported Const General: cooperative, comfortable and no acute distress Orientation/consciousness: patient oriented x3 HENMT Head: Yes normocephalic Eyes General: appearance normal, both eyes and all related structures Neck Neck: Yes supple Resp Other: Mild wheezing left lower lung posteriorly with deep breath Effort & Inspection: normal respiratory effort and no stridor Cardio Rhythm: regular rhythm Heart sounds: S1 normal heart sound present and S2 normal heart sound present Skin General skin exam: turgor normal Neuro General: patient oriented x3, tone normal and moves all extremities Extrem Right lower extremity: no edema Left lower extremity: no edema Assessment and Plan Assessment & Plan (1) Hospital discharge follow-up: Code(s): Z09 - Encounter for follow-up examination after completed treatment for conditions other than malignant neoplasm (2) Pneumonia of both lower lobes: Code(s): J18.9 - Pneumonia, unspecified organism Qualifiers: Pneumonia type: due to unspecified organism Qualified Code(s): J18.9 - Pneumonia, unspecified organism Plan Hospital discharge follow-up Patient is 73-year-old gentleman was admitted 10/29/2023 and discharged 11/03/2023 [facility] Admission diagnosis tachycardia shortness a breath pneumonia Patient was diagnosed with COVID a week before He was brought in to emergency room through EMT In emergency room his respiratory exam was notable for mildly labored respiration and tachypnea. 96% oxygen saturation on NRB 15 L Diffuse rhonchi bilateral During transportation patient's heart rate increased to 180s to 200s and was given 2 doses of diltiazem in the field His chest x-ray showed pneumonia D-dimer was also elevated, patient had CT angio EKG was absent for signs of ischemia CT angio came back negative patient was treated with antibiotics Patient was discharged with oral antibiotic script He is doing better still coughing up clear phlegm On examination today there is mild wheezing left lower lung I have sent albuterol inhaler for him he may use it up to 4 times a day as needed Heart rate is regular, patient is going in and out of AFib He is on Eliquis and metoprolol heart rate is controlled. Further management after the chest x-ray report Orders: Orders XR chest 2V Today J18.9 - Pneumonia, unspecified organism Medications: New albuterol sulfate 90 mcg/actuation (Ventolin HFA) 1 inh inhalation QID PRN 6.7 grams 0RF shortness of breath or wheezing 30 days Coding Level of Care Code Est Pt Level 4 (56637) Diagnoses Hospital discharge follow-up Z09 Pneumonia of both lower lobes due to infectious organism J18.9 Pneumonia type: due to unspecified organism Additional Codes RUSSELL-7 Assessment Billing - RUSSELL-7 Assessment Tool: RUSSELL-7 Assessment 59136 ([id number])
== END 2023-11-18 14:59 | disposition home or self-care (01) ==
PROVIDERS: PCP Internal Medicine; Visit Provider Internal Medicine
DX: J18.9 Pneumonia, unspecified organism (principal); Z09 Encounter for follow-up examination after completed treatment for conditions other than malignant neoplasm
CPT/HCPCS: 99214

== ENCOUNTER 2023-11-18 13:26 | Outpatient (REF) | payer MEDICARE, SELFPAY ==
--- NOTE | ~2023-11-18 | XR_ITS ---
EXAMINATION: XR CHEST CLINICAL INFORMATION: Pneumonia COMPARISON: TECHNIQUE: 2 views of the chest were obtained. FINDINGS: Heart, mediastinum and pulmonary vessels within normal limits. Left lower lobe opacity. Bony structures are intact. XR/XR chest 2V IMPRESSION: Left lower lobe pneumonia. Follow-up to complete radiographic resolution recommended.
== END 2023-11-18 13:27 | disposition home or self-care (01) ==
LOC: HO.HMGCX 13:26
PROVIDERS: PCP Internal Medicine; Visit Provider Internal Medicine
DX: J18.9 Pneumonia, unspecified organism (principal)
CPT/HCPCS: 71046

== ENCOUNTER 2023-12-09 09:20 | Outpatient (AMB) | payer MEDICARE, SELFPAY ==
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
[2023-12-09 09:42] VITALS: BP 120/80; PULSE 69; O2SAT 98; BMI 35.1
== END 2023-12-09 10:05 | disposition home or self-care (01) ==
PROVIDERS: PCP Internal Medicine; Visit Provider Internal Medicine Nephrology
DX: N28.1 Cyst of kidney, acquired (principal); N28.89 Other specified disorders of kidney and ureter; I10 Essential (primary) hypertension
CPT/HCPCS: 99214

== ENCOUNTER → 2023-12-09 09:20 | Outpatient (BNVA) | payer MEDICARE, SELFPAY | PROVIDERS: PCP Internal Medicine; Visit Provider Internal Medicine Nephrology | DX: N28.1 Cyst of kidney, acquired (principal); N28.89 Other specified disorders of kidney and ureter; I10 Essential (primary) hypertension | CPT/HCPCS: 99212 ==

== ENCOUNTER 2023-12-19 11:01 | Outpatient (REF) | payer MEDICARE, SELFPAY ==
--- NOTE | ~2023-12-19 | XR_ITS ---
EXAMINATION: XR CHEST CLINICAL INFORMATION: J18.9 - Pneumonia, unspecified organism COMPARISON: 12/19/2023, 11/18/2023. 05/14/2019. TECHNIQUE: PA and lateral views of the chest. FINDINGS: The cardiac, hilar, and mediastinal contours are normal. Lungs again demonstrate patchy linear increased markings in the left lower lobe, right middle lobe, lingula, as well as left upper lobe, unchanged from prior exams dating back to 2019. This is likely reflective of regions of scarring. There is probable underlying COPD. There are no effusions or pneumothorax. There are cholecystectomy clips noted. Soft tissues otherwise normal. No suspicious bony abnormalities. XR/XR chest 2V IMPRESSION: 1. Stable patchy opacities left lower lobe, right middle lobe, lingula, and left upper lobe, unchanged from prior exams dating back to 2019. Presumably these reflect regions of scarring. Subtle superimposed infectious/inflammatory disease is difficult to exclude. 2. Probable underlying COPD. Electronically signed by: Bernardo Rodríguez MD 03/01/2024 10:02 AM DINESH KO
== END 2023-12-19 11:02 | disposition home or self-care (01) ==
LOC: HO.HMGCX 11:01
PROVIDERS: PCP Internal Medicine; Visit Provider Internal Medicine
DX: J18.9 Pneumonia, unspecified organism (principal); Z13.9 Encounter for screening, unspecified
CPT/HCPCS: 71046; 81003; 99202

== ENCOUNTER → 2023-12-19 11:04 | Outpatient (BNV) | payer MEDICARE, SELFPAY | PROVIDERS: PCP Internal Medicine; Visit Provider Radiology Diagnostic Radiology | DX: J44.9 Chronic obstructive pulmonary disease, unspecified (principal) | CPT/HCPCS: 71046 ==

== ENCOUNTER 2023-12-19 13:34 | Outpatient (AMB) | payer MEDICARE, SELFPAY ==
--- NOTE | 2023-12-19 13:45 | A.OFFVIS_ITS ---
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 He is a patient of Dr. Jones. He seen for the following urologic conditions - renal mass Left renal mass Discussed imaging findings MRI - There is an exophytic T1 predominantly hyperintense and T2 heterogeneous signal intensity mass in the lateral midpole of the left kidney measuring 6.4 x 4.8 mm in axial plane and up to 5.5 cm Given baseline hypertension were performed Lasix renogram plus CT-guided biopsy [facility] Surgical History Hx of tonsillectomy History of cholecystectomy History of colonoscopy History of cardiac cath Family History Father CAD (coronary artery disease) Heart attack Mother Colon cancer Brother Diabetes Social History Housing: House Alcohol intake: current Alcohol intake frequency: holidays/special occasions only Alcohol type: beer and hard liquor Patient Tobacco Use Status: Former Tobacco user Years Smoked: 20 +/- e-Cigarette/Vaping Use: Never Used service: No Current occupational status: retired Cognitive needs: No Hearing needs: No Vision needs: Yes Review of Systems Const Denies chills and Denies fever(s) Card Reports no additional complaints and Denies syncope Resp Denies cough GI Denies abdominal pain and Denies heartburn Reports as per HPI and Denies change in libido Neuro Denies syncope Psych Denies change in libido Endo Denies change in libido Physical Exam Const General: cooperative, healthy appearing, comfortable and no acute distress Orientation/consciousness: patient oriented x3 HEENT Face and sinus: Yes normal facial exam Mouth: moist mucous membranes Neck Neck: Yes normal visual inspection, Yes full ROM and Yes trachea midline Chest Chest palpation & inspection: normal inspection of the chest Resp Effort & Inspection: normal respiratory effort, able to speak in complete sentences and no respiratory distress GI Inspection: Yes normal to inspection Back/Spine/Pelvis Cervical Spine: normal cervical lordosis Thoracic/Lumbar Spine: thoracic and lumbar spine normal to inspection Skin General skin exam: no rashes or lesions noted Neuro General: patient oriented x3, gait normal, tone normal and moves all extremities Extrem General: Yes normal to inspection and Yes capillary refill normal Results AMB Urinalysis, Automated UA Leukoctes 0 Reyna/uL Last Edit by RICHAR Alba on 12/19/23 14:00 UA Nitrite Negative Last Edit by RICHAR Alba on 12/19/23 14:00 UA Urobilinogen 0.2 mg/dL Last Edit by Elen Ruiz CCM on 12/19/23 14:0 0 UA Protein 15 mg/dL Last Edit by Elen Ruiz CCM on 12/19/23 14:00 UA pH 5.5 Last Edit by Elen Ruiz [facility] on 12/19/23 14:00 UA Blood 0 Tyshawn/uL Last Edit by Elen Ruiz CCM on 12/19/23 14:00 UA Specific Tabor 1.030 Last Edit by Elen Ruiz [facility]CM on 12/19/23 14: 00 UA Ketone Negative Last Edit by Elen Ruiz CCM on 12/19/23 14:00 UA Bilirubin 0 mg/dL Last Edit by Elen Ruiz [facility] on 12/19/23 14:00 UA Glucose 0 mg/dL Last Edit by Elen Ruiz [facility] on 12/19/23 14:00 Results Reviewed Results Reviewed: Laboratory Last Values Urine pH (Auto) 5.5 12/19/23 13:59 Specific Tabor (Auto) 1.030 12/19/23 13:59 Urine Protein (Auto) 15 mg/dL 12/19/23 13:59 Glucose (UA)(Auto) 0 mg/dL 12/19/23 13:59 Urine Ketones (Auto) Negative 12/19/23 13:59 Urine Blood (Auto) 0 Tyshawn/uL 12/19/23 13:59 Urine Nitrite (Auto) Negative 12/19/23 13:59 Urine Bilirubin (Auto) 0 mg/dL 12/19/23 13:59 Urine Urobilinogen (Auto) 0.2 mg/dL 12/19/23 13:59 Leukocyte Esterase (Auto) 0 Reyna/uL 12/19/23 13:59 Assessment & Plan Assessment & Plan (1) Renal mass: Code(s): N28.89 - Other specified disorders of kidney and ureter Category: Medical Plan Plan CT-guided left renal biopsy Lasix renogram Orders: Orders AMB Urinalysis Automated 12/19/23 Z13.9 - Encounter for screening, unspecified NM renal flow w pharm int 12/19/23 N13.30 - Unspecified hydronephrosis, N28.89 - Other specified disorders of kidney and ureter CT biopsy renal LT 12/19/23 N28.89 - Other specified disorders of kidney and ureter Patient Instructions: Imaging studies, laboratory and physical exam results were discussed and reviewed in detail. No major barriers to patient understanding were identified. An opportunity to ask questions regarding the treatment plan was provided. All questions were answered. The patient expressed understanding and agreement with the above treatment plan. The patient is aware they should contact our office by phone for worsening of their current condition or the appearance of new urologic symptoms. Compliance is encouraged with any medications and followup testing that is ordered. It is a privilege to participate in the urologic care of your patient. If you have any questions or concerns regarding treatment for the above conditions, or other urologic issues, please do not hesitate to contact me. The office telephone contact is [phone]. This note is constructed using voice recognition software. While every effort has been made to ensure accuracy auto body worker errors may have been included. Yours sincerely, Dr Bird Jaquez MD, [facility] - Urology Providers of Expert, Compassionate Care for the Genitourinary System Coding Level of Care Code New Pt Level 4 (62957) Diagnoses Renal mass N28.89
== END 2023-12-19 15:00 | disposition home or self-care (01) ==
PROVIDERS: PCP Internal Medicine; Visit Provider Urology
DX: N28.89 Other specified disorders of kidney and ureter (principal)
CPT/HCPCS: 99204

== ENCOUNTER 2024-01-01 08:21 | Day surgery (SDC) | payer MEDICARE, SELFPAY ==
[2024-01-01] VITALS (12 sets, daily range): BP systolic 114–143; BP diastolic 60–74; PULSE 49–60; RESP 16–18; TEMP 36.2–36.4; O2SAT 99–100; BMI 35.3
--- NOTE | ~2024-01-01 | CT_ITS ---
Left renal mass PROCEDURES: 1. Limited preprocedure CT of the abdomen. Permanent images saved in PACS. 2. CT-guided biopsy of the left renal mass. 3. Limited postprocedure CT of the abdomen. Permanent images saved in PACS. CLINICIANS: Santy Johnson PA-C MEDICATIONS: -Versed 1.5 mg, Fentanyl 75 mcg, and lidocaine 1% 10 mL SQ -Antibiotics: None -For additional details, please see nursing flowsheet. COMPLICATIONS: None ESTIMATED BLOOD LOSS: < 5 ml CONTRAST: None SPECIMENS: 4 x 18 g cores were placed in saline MODERATE SEDATION TIME: 22 min PROCEDURE NOTE: The procedure, risks, benefits, and alternatives were carefully explained to the patient and written informed consent was obtained. The patient was placed prone on the CT table. A timeout was performed. A limited CT of the abdomen was performed to localize the left renal mass and choose appropriate needle entry and trajectory. The patient was prepped and draped in usual sterile fashion. The skin and deeper soft tissues were anesthetized with lidocaine. Under CT guidance, a 17 gauge trocar needle was advanced to the left renal mass. An 18 gauge biopsy device was inserted through the trocar needle advanced into the left renal mass. A total of 4, 18 gauge cores were performed. The specimens was placed in formalin. A Gelfoam slurry was then administered through the trocar needle and into the left perirenal space. The needle was removed. A limited postprocedure CT was performed, which did not demonstrate any significant left perinephric hematoma. A dry dressing was applied and secured with Tegaderm. There were no immediate complications. The patient was stable after the procedure and was transferred to the post anesthesia care unit. The procedure was done under moderate sedation with a dedicated nurse for monitoring of vital signs. CT/CT biopsy renal LT Impression: CT-guided left renal mass biopsy. This procedure was performed by Santy Johnson PA-C and supervised by Dr. Ambrocio. Electronically signed by: Javier Ambrocio MD 01/01/2024 03:19 PM EDT
[2024-01-01 09:02] LABS: MANUAL DIFF FLAG NO
[2024-01-01 09:09] LABS: Glucose, Whole Blood 105 mg/dL (60-115)
[2024-01-01 09:11] LABS: Basophils Absolute Auto 0.1 X10*3/uL (0.0-0.2); Basophils Percent Auto 0.8 % (0-2); Eosinophils Absolute Auto 0.1 X10*3/uL (0.0-0.4); Eosinophils Percent Auto 1.3 % (0-4); Hematocrit 38.5 % (42.0-52.0); Hemoglobin 12.8 g/dl (14.0-18.0); Imm Gran Abs Auto 0.04 X10*3/uL (0.00-0.03); Imm Gran Pct Auto 0.6 % (0.0-0.4); Lymphocytes Absolute Auto 1.2 X10*3/uL (1.2-4.9); Lymphocytes Percent Auto 17.3 % (20-40); Mean Corpuscular HGB Conc 33.2 g/dl (31.0-36.0); Mean Corpuscular Hemoglobin 29.7 pg (27.0-33.0); Mean Corpuscular Volume 89.3 fL (80.0-98.0); Mean Platelet Volume 10.1 fL (9.4-12.4); Monocytes Absolute Auto 0.6 X10*3/uL (0.1-1.2); Monocytes Percent Auto 8.9 % (2-11); Neutrophils Percent Auto 71.1 % (45-73); Platelet Count 221 X10*3/uL (160-400); Red Blood Count 4.31 X10*6/uL (4.60-5.80); Red Cell Distribution Width 13.8 % (11.0-16.0); White Blood Count 7.1 X10*3/uL (4.8-10.8)
[2024-01-01 09:18] LABS: Prothrombin Time 11.8 SEC (10.9-12.4)
[2024-01-01 09:21] LABS: Partial Thromboplastin Time 34.9 SEC (26.0-36.8)
--- NOTE | 2024-01-01 10:18 | MHC.SHP ---
Pre-Procedural Eval Section A - 24 Hr Update-Section A only Date of Service: 01/01/24 Section B - Complete if H&P > 30 days Chief Complaint: LEFT RENAL MASS, BIO Details of Present Illness: 73 y/o man presents with a left renal mass and an equivocal MRI. Urology requests a biopsy. Relevant Family History (Specify if Yes): No Relevant Social History: None Present Medications: see Short Stay Collaborative assessment Medical History: Significant History History of Previous Operations: Relevant previous surgery/procedure and date(s) Allergies: Allergies Allergy/AdvReac Type Severity Reaction Status Date / Time No Known Allergies Allergy Verified 12/19/23 13:46 [No Known Allergies*] Review of Systems Sugical H&P ROS: Negative: Constitution, Cardiovascular, Respiratory and Gastrointestinal Exam Surgical H&P Exam: Normal: Lungs, Normal: Abdomen (soft, obese, nt), Normal: Skin and Normal: Neurological and Significant Findings: Heart (bradycardia) Plan 73 y/o man with left renal mass -Image guided biopsy. Time Spent With Patient Time: Total time managing care of this patient today ____ minutes.
== END 2024-01-01 14:44 | disposition home or self-care (01) ==
PROVIDERS: Physician Assistant Surgical; Student in an Organized Health Care Education/Training Program; PCP Internal Medicine; Visit Provider Urology
DX: N28.89 Other specified disorders of kidney and ureter (principal); N13.30 Unspecified hydronephrosis; I10 Essential (primary) hypertension; R00.1 Bradycardia, unspecified; R73.01 Impaired fasting glucose; Z79.01 Long term (current) use of anticoagulants; Z90.49 Acquired absence of other specified parts of digestive tract; Z87.891 Personal history of nicotine dependence
CPT/HCPCS: 36415; 50200; 77012; 82947; 85025; 85610; 85730; 86850; 86900; 86901; 88305; 99152; J2250; J2310; J3010

== ENCOUNTER → 2024-01-01 09:39 | Outpatient (BNV) | payer MEDICARE, SELFPAY | PROVIDERS: PCP Internal Medicine; Visit Provider Student in an Organized Health Care Education/Training Program | DX: N28.89 Other specified disorders of kidney and ureter (principal) | CPT/HCPCS: 50200; 77012 ==

== ENCOUNTER → 2024-01-06 12:45 | Outpatient (REF) | payer MEDICARE, SELFPAY ==
--- NOTE | ~2024-01-06 | NM_ITS ---
EXAMINATION: RENAL DYNAMIC IMAGING STUDY WITH LASIX CLINICAL INFORMATION: Unspecified hydronephrosis. COMPARISON: No previous radionuclide renal scan is available for comparison. A CT guided renal biopsy which includes CT images of both kidneys dated 01/01/2024 is available for comparison. TECHNIQUE: Serial gamma scintillation camera images were obtained over the posterior trunk during the initial transit and subsequent distribution of a bolus intravenous injection of 10 mCi of Tc-99m DTPA. At 30 minutes later, 40 mg of Lasix was administered intravenously and an additional 30 minutes of images obtained. FINDINGS: Initial rapid sequence images show prompt and bilaterally symmetrical flow to the kidneys. Subsequent sequential static images obtained up to 30 minutes show good concentration bilaterally. There is a subtle defect laterally in the mid left kidney that corresponds to the recently biopsied left renal mass. There is evidence of excretory function by 3 to 4 minutes post injection. The urinary bladder is mostly outside the [id number] until approximately 20 minutes postinjection with its superior aspect is visualized. At 30 minutes there is moderate retention but no significant dilatation in the renal pelves bilaterally. Following Lasix administration, there is prompt washout of the retained activity present at the time of Lasix administration and both renal pelves. At the end of the study and the urinary bladder is visualized and there is no significant retention in either renal collecting system. The T-1/2 washout times following Lasix administration are: Left 5 minutes and right 4 minutes. The relative function of the two kidneys based on the 2-3 minute images are: Left 52% and right 48%. NM/NM renal flow w pharm int IMPRESSION: LEFT KIDNEY: Normal perfusion and function. There is subtle visualization of a defect from the known left renal mass. No hydronephrosis or outflow obstruction is present. RIGHT KIDNEY: Normal perfusion and function. No hydronephrosis or outflow obstruction. Electronically signed by: Marco Ruano MD 01/07/2024 05:03 PM EDT RP
== END ==
LOC: HO.NUCMED 12:45
PROVIDERS: PCP Internal Medicine; Visit Provider Urology
DX: N13.30 Unspecified hydronephrosis (principal); N28.89 Other specified disorders of kidney and ureter
CPT/HCPCS: 78708; A9539; J1940

== ENCOUNTER 2024-01-16 11:44 | Outpatient (AMB) | payer MEDICARE, SELFPAY ==
--- NOTE | 2024-01-16 11:57 | MHC.OFFVIS ---
Intake Visit Reasons: 4w/lasix renogram/kidney biopsy(set) Intake Note: Patient is Present for Follow Up Renogram/Kidney Biopsy Urology Medication: None Antibiotic Allergies: None Blood Thinners: Eliquis Refrigeration Supervisor Required: No Allergies No Known Allergies [No Known Allergies*] Allergy (Verified 01/16/24 11:57) Medication List - Last Reconciled 01/16/24 by Bird Jaquez MD acetaminophen 325 mg PO QID PRN albuterol sulfate 90 mcg/actuation (Ventolin HFA) 1 inh inhalation QID PRN 30 days apixaban (Eliquis) 5 mg PO BID metoprolol tartrate 50 mg PO BID HPI Comments Details: Romie is a pleasant male. He is a patient of Dr. Jones. He seen for the following urologic conditions - renal mass Discussed findings Plan six-month for follow-up imaging Left renal mass Discussed imaging findings MRI - There is an exophytic T1 predominantly hyperintense and T2 heterogeneous signal intensity mass in the lateral midpole of the left kidney measuring 6.4 x 4.8 cm in axial plane and up to 5.5 cm Lasix renogram - Left 52% and right 48% Left renal biopsy - Kidney, left mass, biopsy: Scant inflamed fibrovascular tissue and abundant necrosis PFSH Surgical History Hx of tonsillectomy History of cholecystectomy History of colonoscopy History of cardiac cath Family History Father CAD (coronary artery disease) Heart attack Mother Colon cancer Brother Diabetes Social History Housing: House Alcohol intake: current Alcohol intake frequency: holidays/special occasions only Alcohol type: beer and hard liquor Patient Tobacco Use Status: Former Tobacco user Years Smoked: 20 +/- e-Cigarette/Vaping Use: Never Used service: No Current occupational status: retired Cognitive needs: No Hearing needs: No Vision needs: Yes Review of Systems Const Denies chills and Denies fever(s) Card Reports no additional complaints and Denies syncope Resp Denies cough GI Denies abdominal pain and Denies heartburn Reports as per HPI and Denies change in libido Neuro Denies syncope Psych Denies change in libido Endo Denies change in libido Physical Exam Const General: cooperative, healthy appearing, comfortable and no acute distress Orientation/consciousness: patient oriented x3 HEENT Face and sinus: Yes normal facial exam Mouth: moist mucous membranes Neck Neck: Yes normal visual inspection, Yes full ROM and Yes trachea midline Chest Chest palpation & inspection: normal inspection of the chest Resp Effort & Inspection: normal respiratory effort, able to speak in complete sentences and no respiratory distress GI Inspection: Yes normal to inspection Back/Spine/Pelvis Cervical Spine: normal cervical lordosis Thoracic/Lumbar Spine: thoracic and lumbar spine normal to inspection Skin General skin exam: no rashes or lesions noted Neuro General: patient oriented x3, gait normal, tone normal and moves all extremities Extrem General: Yes normal to inspection and Yes capillary refill normal Assessment & Plan Assessment & Plan (1) Renal mass, left: Code(s): N28.89 - Other specified disorders of kidney and ureter Category: Medical Plan Six-month follow-up imaging Orders: Orders MR kidney wo/w con 6 Months N28.89 - Other specified disorders of kidney and ureter Patient Instructions: Imaging studies, laboratory and physical exam results were discussed and reviewed in detail. No major barriers to patient understanding were identified. An opportunity to ask questions regarding the treatment plan was provided. All questions were answered. The patient expressed understanding and agreement with the above treatment plan. The patient is aware they should contact our office by phone for worsening of their current condition or the appearance of new urologic symptoms. Compliance is encouraged with any medications and followup testing that is ordered. It is a privilege to participate in the urologic care of your patient. If you have any questions or concerns regarding treatment for the above conditions, or other urologic issues, please do not hesitate to contact me. The office telephone contact is [phone]. This note is constructed using voice recognition software. While every effort has been made to ensure accuracy aircraft mechanic electrical and radio errors may have been included. Yours sincerely, Dr Bird Jaquez MD, [facility] - Urology Providers of Expert, Compassionate Care for the Genitourinary System Coding Level of Care Code Est Pt Level 3 (09941) Diagnoses Renal mass, left N28.89
== END 2024-01-16 12:30 | disposition home or self-care (01) ==
PROVIDERS: PCP Internal Medicine; Visit Provider Urology
DX: N28.89 Other specified disorders of kidney and ureter (principal)
CPT/HCPCS: 99213

== ENCOUNTER → 2024-01-16 11:44 | Outpatient (BNVA) | payer MEDICARE, SELFPAY | PROVIDERS: PCP Internal Medicine; Visit Provider Urology | DX: N28.89 Other specified disorders of kidney and ureter (principal) | CPT/HCPCS: 99212 ==

== ENCOUNTER 2024-04-20 09:45 | Outpatient (AMB) | payer MEDICARE, SELFPAY ==
--- NOTE | 2024-04-20 10:01 | A.OFFPC_ITS ---
Vital Signs 04/20/24 10:02 Height 6 ft Weight 276 lb BMI 37.4 BP 130/64 Blood Pressure Location Rt brachial Position Sitting Pulse 62 Pulse Source Pulse Oximeter Pulse Oximetry (%) 98 Oxygen Delivery Method Room Air Intake Visit Reasons: 6 month follow up Allergies No Known Allergies [No Known Allergies*] Allergy (Verified 04/20/24 10:02) Medication List - Last Reconciled 04/20/24 by Raudel Jones MD acetaminophen 325 mg PO QID PRN albuterol sulfate 90 mcg/actuation (Ventolin HFA) 1 inh inhalation QID PRN 30 days apixaban (Eliquis) 5 mg PO BID metoprolol tartrate 50 mg PO BID Tobacco use date assessed: 04/20/24 Fall risk assessment: No Falls in past year Last assessed Fall Risk: 04/20/24 Dental Screening Dental Screen Date: 04/20/24 Did you have a dental visit in the last 12 months?: Yes Did you have a dental problem in the last 6 months where you did not have access to dental care?: No Was dental information given to patient?: Patient has dentist HPI 6 month follow up 2 HPI Details colon ? order labs for october holter cardio asp cant afford plavix pniemia revew last note - The patient is a 73-year-old male pres enting with atrial fibrillation management and medication review. - Atrial fibrillation was noted during a previous admission for pneumonia with subsequent prescription of metoprolol and anticoagulation therapy with Eliquis, which has been inconsistent due to financial constraints. - Concerns were raised regarding the nec essity and cost of Eliquis, discontinued for about three to four weeks, by the patient - Previous hematologic evaluation indica ada mild anemia, possibly iron- deficiency, as observed in the past lab work. - colonoscopy was in [address] Gonzalez he is due for repeat colonoscopy as patient found to have tubular adenoma, referral placed - after the hospital discharge patient n ever saw director of investigations and just continue taking medication on his own, he was last seen by me in November of last year I have ordered referral to Cardiology to evaluate for paroxysmal atrial fibrillation, patient is in regular rhythm at this time Holter monitor ordered for 5 days An investigation into anemia progression will continue with supplementary labs to potentially identify iron deficiency. Patient Instructions - Continue taking metoprolol as prescrib ed. - Substitute Eliquis with aspirin for an ticoagulation. - Await contact from [facility]?s cardiology for Holter monitoring. - Attend follow-up for further investiga tion into anemia and past colonoscopy protocol. Review of Systems - Cardiovascular: Reports past atrial fi brillation. - Hematologic: Denies awareness of hemor rhoids but acknowledges anemia. - Surgical History: Reports luann from prior surgical procedure. - Gastrointestinal: Reports past colonos copy approximately three years ago, next follow-up unclear. - General: No fever no chills - Neurological: No headaches no dizziness - Ear nose throat: No sore throat no hearing difficulty no ear pain - Cardiovascular: No syncope, no chest pain, no palpitations - Gastrointestinal: No nausea vomiting or diarrhea - Endocrine: No polyuria polydipsia no heat intolerance - Genitourinary: No dysuria , no blood in urine Physical Exam General: No acute distress HEENT: No acute findings Neck: Supple Respiratory system: Able to talk in full sentences, no audible wheeze cardiovascular: Heart is regular now Gastrointestinal: No pain Extremities: No new findings DIRECTOR SALES AND TRADE MARKETING: Alert awake oriented x3 motor sensory intact Skin: Normal turgor PFSH Surgical History Hx of tonsillectomy History of cholecystectomy History of colonoscopy History of cardiac cath Family History Father CAD (coronary artery disease) Heart attack Mother Colon cancer Brother Diabetes Social History Housing: House Alcohol intake: current Alcohol intake frequency: holidays/special occasions only Alcohol type: beer and hard liquor Patient Tobacco Use Status: Former Tobacco user Years Smoked: 20 +/- e-Cigarette/Vaping Use: Never Used service: No Current occupational status: retired Cognitive needs: No Hearing needs: No Vision needs: Yes Questionnaire PHQ-9 Over the last 2 weeks, how often have you been bothered by any of the following problems? 1. Little interest or pleasure in doing things: not at all 2. Feeling down, depressed, or hopeless: not at all 3. Trouble falling or staying asleep, or sleeping too much: not at all 4. Feeling tired or having little energy: not at all 5. Poor appetite or overeating: not at all 6. Feeling bad about yourself - or that you are a failure or have let yourself or your family down: not at all 7. Trouble concentrating on things, such as reading the newspaper or watching television: not at all 8. Moving or speaking so slowly that other people could have noticed. Or the opposite - being so fidgety or restless that you have been moving around a lot more than usual: not at all 9. Thoughts that you would be better off or of hurting yourself in some way: not at all Total score: 0 Depression Screening Interpretation: Negative Depression Screening Done: Yes 97514 - PHQ-9 Billing: Yes Source: Developed by Drs. Alen River, Guillermina Meza, Zheng Nova and colleagues, with an educational alison from [employer]. Thrive Questionnaire Date Thrive assessed: 04/20/24 I am a: Patient What is your living situation today?: I have a steady place to live Within the past 12 months, did the food you bought not last and you didn't have the money to get more?: Never true Within the past 12 months, did you worry whether your food would run out before you got money to buy more?: Never true Do you have trouble paying for medicines?: No Do you have trouble getting transportation to medical appointments?: No Do you have trouble paying your heating and electricity bill?: No Do you have trouble taking care of your child, family member or friend?: No Do you have trouble with day-to-day activities such as bathing, preparing meals, shopping, managing finances, etc.?: No Are you currently unemployed and looking for a job?: No Are you interested in more education?: No Please select the resources that you would like help with: None Currently or been in a relationship where the following occur: No concerns reported THRIVE Score: 0 AUDIT C Alcohol Use Questionnaire (AUDIT-C) 1. How often do you have a drink containing alcohol?: Monthly or less 2. How many drinks containing alcohol do you have on a typical day when you are drinking?: 1 or 2 3. How often do you have six or more drinks on one occasion?: Less than monthly Total Score: 2 Score Reviewed/Action Taken: Yes RUSSELL-7 AMB Questionnaire RUSSELL-7 Date RUSSELL - 7 assessed: 04/20/24 Feeling nervous, anxious, or on edge: 0 = Not at all Not being able to stop or control worryin = Not at all Worrying too much about different things: 0 = Not at all Trouble relaxin = Not at all Being so restless that it is hard to sit still: 0 = Not at all Becoming easily annoyed or irritable: 0 = Not at all Feeling afraid as if something awful might happen: 0 = Not at all Total RUSSELL-7 score (0-4 normal; 5-9 mild; 10-14 moderate; 15-21 severe): 0 Source: Developed by Drs. Alen River, Guillermina Meza, Zheng Nova and colleagues, with an educational alison from [employer]. RUSSELL-7 Assessment Billing RUSSELL-7 Assessment Tool: RUSSELL-7 Assessment 01699 Physical exam (Primary Care) Vital Signs: Last Vital Signs Pulse 62 04/20/24 10:02 BP 130/64 04/20/24 10:02 Pulse Ox 98 04/20/24 10:02 Oxygen Delivery Method Room Air 04/20/24 10:02 BMI result Body Mass Index 37.4 Tobacco/Smoking Status: Tobacco use Status Tobacco use date assessed 04/20/24 04/20/24 10:06 Patient Tobacco Use Status Former Tobacco user 04/20/24 10:06 e-Cigarette/Vaping Use Never Used 04/20/24 10:06 PHQ-9: PHQ-9 Score PHQ-9: Total score 0 04/20/24 10:26 Depression Screening Interpretation: Negative Thrive Assessment: Date of Thrive Assessment Date Thrive assessed 04/20/24 04/20/24 10:06 Currently or been in a relationship where the following occur: No concerns reported Coding Level of Care Code Est Pt Level 4 (88406) Complex EM visit Add On G2211 Diagnoses Paroxysmal atrial fibrillation I48.0 Other iron deficiency anemia D50.8 Iron deficiency anemia type: other iron deficiency Tubular adenoma D36.9 Colon cancer screening Z12.11 Additional Codes RUSSELL-7 Assessment Billing - RUSSELL-7 Assessment Tool: RUSSELL-7 Assessment 73685 ([id number]) PHQ-9 - 83943 - PHQ-9 Billing: Yes ([id number]) Assessment & Plan Assessment & Plan (1) Paroxysmal atrial fibrillation: Code(s): I48.0 - Paroxysmal atrial fibrillation Category: Medical (2) Anemia, iron deficiency: Code(s): D50.9 - Iron deficiency anemia, unspecified Category: Medical Qualifiers: Iron deficiency anemia type: other iron deficiency Qualified Code(s): D50.8 - Other iron deficiency anemias (3) Tubular adenoma: Code(s): D36.9 - Benign neoplasm, unspecified site Category: Medical (4) Colon cancer screening: Code(s): Z12.11 - Encounter for screening for malignant neoplasm of colon Category: Medical Plan colon ? order labs for october holter cardio asp cant afford plavix pniemia revew last note - The patient is a 73-year-old male presenting with atrial fibrillation management and medication review. - Atrial fibrillation was noted during a previous admission for pneumonia with subsequent prescription of metoprolol and anticoagulation therapy with Eliquis, which has been inconsistent due to financial constraints. - Concerns were raised regarding the necessity and cost of Eliquis, discontinued for about three to four weeks, by the patient - Previous hematologic evaluation indicated mild anemia, possibly iron-deficiency, as observed in the past lab work. - colonoscopy was in [address] Gonzalez he is due for repeat colonoscopy as patient found to have tubular adenoma, referral placed - after the hospital discharge patient never saw director of investigations and just continue taking medication on his own, he was last seen by me in November of last year I have ordered referral to Cardiology to evaluate for paroxysmal atrial fib rillation, patient is in regular rhythm at this time Holter monitor ordered for 5 days An investigation into anemia progression will continue with supplementary labs to potentially identify iron deficiency. Patient Instructions - Continue taking metoprolol as prescribed. - Substitute Eliquis with aspirin for anticoagulation. - Await contact from [facility]s cardiology for Holter monitoring. - Attend follow-up for further investigation into anemia and past colonoscopy protocol. Orders: Orders ECG 5 day holter monitor Today I48.0 - Paroxysmal atrial fibrillation Lipid Panel Today D50.9 - Iron deficiency anemia, unspecified, I48.0 - Paroxysmal atrial fibrillation Complete Blood Count Auto Diff Today D50.9 - Iron deficiency anemia, unspecified, I48.0 - Paroxysmal atrial fibrillation LDL Cholesterol Direct Today D50.9 - Iron deficiency anemia, unspecified, I48.0 - Paroxysmal atrial fibrillation Comprehensive [place]. Panel Fast Today D50.9 - Iron deficiency anemia, unspecified, I48.0 - Paroxysmal atrial fibrillation Referrals Cardiology Referral I48.0 - Paroxysmal atrial fibrillation Gastroenterology Referral D36.9 - Benign neoplasm, unspecified site, Z12.11 - Encounter for screening for malignant neoplasm of colon
[2024-04-20 10:02] VITALS: BP 130/64; PULSE 62; O2SAT 98; BMI 37.4
== END 2024-04-20 10:27 | disposition home or self-care (01) ==
PROVIDERS: PCP Internal Medicine; Visit Provider Internal Medicine
DX: I48.0 Paroxysmal atrial fibrillation (principal); D50.8 Other iron deficiency anemias; D36.9 Benign neoplasm, unspecified site; Z12.11 Encounter for screening for malignant neoplasm of colon

== ENCOUNTER → 2024-04-20 09:45 | Outpatient (BNVA) | payer MEDICARE, SELFPAY | PROVIDERS: PCP Internal Medicine; Visit Provider Internal Medicine | DX: I48.0 Paroxysmal atrial fibrillation (principal); D50.8 Other iron deficiency anemias; D36.9 Benign neoplasm, unspecified site | CPT/HCPCS: 96127; 99212 ==

== ENCOUNTER → 2024-04-26 10:17 | Outpatient (REF) | payer MEDICARE, SELFPAY | LOC: HO.CARD 10:17 | PROVIDERS: PCP Internal Medicine; Visit Provider Internal Medicine | DX: I48.0 Paroxysmal atrial fibrillation (principal) | CPT/HCPCS: 93242 ==

== ENCOUNTER → 2024-04-26 10:19 | Outpatient (BNV) | payer MEDICARE, SELFPAY | PROVIDERS: PCP Internal Medicine; Visit Provider Internal Medicine Cardiovascular Disease | DX: R00.1 Bradycardia, unspecified (principal) | CPT/HCPCS: 93244 ==

== ENCOUNTER 2024-06-04 10:38 | Outpatient (REF) | payer MEDICARE, SELFPAY ==
[2024-06-04 13:58] LABS: Anion Gap 10 (12-20); Blood Urea Nitrogen 20 mg/dL (9-16); Carbon Dioxide 27 mmol/L (22-29); Chloride 108 mmol/L (96-108); Estimated Glomerular Filt Rate > 60; Potassium 4.1 mmol/L (3.3-5.1); Sodium 141 mmol/L (135-145)
== END 2024-06-04 10:39 | disposition home or self-care (01) ==
LOC: HO.HMGCLDS 10:38
PROVIDERS: PCP Internal Medicine; Visit Provider Internal Medicine Nephrology
DX: N28.1 Cyst of kidney, acquired (principal); N28.89 Other specified disorders of kidney and ureter; I10 Essential (primary) hypertension
CPT/HCPCS: 36415; 80051; 82565; 84520

== ENCOUNTER 2024-06-08 09:21 | Outpatient (AMB) | payer MEDICARE, SELFPAY ==
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
[2024-06-08 09:28] VITALS: BP 130/74; PULSE 50; O2SAT 99; BMI 38.2
== END 2024-06-08 09:47 | disposition home or self-care (01) ==
PROVIDERS: PCP Internal Medicine; Visit Provider Internal Medicine Nephrology
DX: N28.1 Cyst of kidney, acquired (principal); I10 Essential (primary) hypertension
CPT/HCPCS: 99214

== ENCOUNTER → 2024-06-08 09:21 | Outpatient (BNVA) | payer MEDICARE, SELFPAY | PROVIDERS: PCP Internal Medicine; Visit Provider Internal Medicine Nephrology | DX: I10 Essential (primary) hypertension (principal); N28.1 Cyst of kidney, acquired | CPT/HCPCS: 99212 ==

== ENCOUNTER 2024-06-21 10:06 | Outpatient (AMB) | payer MEDICARE, SELFPAY ==
[2024-06-21 10:31] VITALS: BP 132/60; PULSE 49; BMI 37.6
--- NOTE | 2024-06-21 10:31 | A.OFFVIS_ITS ---
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 Today he reports that he was acutely ill with COVID and double pneumonia October 2023. He was admitted to [facility] and during that admission he was found to have atrial fibrillation. He says he was started on metoprolol and given Eliquis for anticoagulation. He does not recall noticing heart palpitations at that time. He has not had any issues with heart palpitations since then. He has recovered from that illness but states that he notices some shortness of breath with exertion that he thinks is residual. No chest discomfort at rest or with activity. No lightheadedness, syncope, falls. 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 He said they laid him back and gave him cool cloths. The episode passed. He has never had an episode like this in the past. No PND, orthopnea or edema. He ran out of Eliquis recently and went for a refill and he was told it would be a 1000 dollars. He has been taking aspirin instead. No bleeding issues reported. FORMERLY [facility] Surgical History Hx of tonsillectomy History of cholecystectomy History of colonoscopy History of cardiac cath Family History Father CAD (coronary artery disease) Heart attack Mother Colon cancer Brother Diabetes Social History Housing: House Alcohol intake: current Alcohol intake frequency: holidays/special occasions only Alcohol type: beer and hard liquor Patient Tobacco Use Status: Former Tobacco user Years Smoked: 20 +/- e-Cigarette/Vaping Use: Never Used service: No Current occupational status: retired Cognitive needs: No Hearing needs: No Vision needs: Yes Review of Systems Const All systems reviewed & are unremarkable except as noted in HPI and below ENT Denies dizziness Card Denies chest pain, Denies chest pain at rest, Denies chest pain with activity, Denies rapid heart rate, Denies pedal edema, Denies edema, Denies leg edema, Denies lightheadedness, Denies palpitations, Denies dyspnea, Reports dyspnea on exertion and Denies orthopnea Resp Denies cough, Denies dyspnea and Reports dyspnea on exertion GI Denies hematochezia and Denies change in stool character Musc Denies abnormal gait, Denies limited range of motion, Denies muscle cramps, Denies muscle weakness, Denies numbness, Denies radiating pain into limb, Denies stiffness and Denies tingling Neuro Denies abnormal gait, Denies dizziness, Denies numbness and Denies tingling Endo Denies palpitations Physical Exam Vital Signs: Last Vital Signs Pulse 49 L 06/21/24 10:31 BP 132/60 06/21/24 10:31 BMI result Body Mass Index 37.6 Const General: cooperative, healthy appearing, comfortable and no acute distress Orientation/consciousness: patient oriented x3 Neck Neck: Yes normal visual inspection and Yes no JVD Resp Effort & Inspection: normal respiratory effort Auscultation: clear to auscultation bilaterally, no rales, no rhonchi and no wheezes Cardio Rate: regular rate Rhythm: regular rhythm Heart sounds: S1 normal heart sound present, S2 normal heart sound present, no gallops, no murmurs and no rubs Neuro General: patient oriented x3 Extrem General: Yes normal to inspection and No no pedal edema Psych Appearance: grossly normal Mental Status: mental status grossly normal Speech and movement: Normal speech and movement present Office Procedures EKG Details: Today, read by me, Sinus bradycardia, low voltage QRS, rate 49, Qtc 383ms [id number], Complete Assessment & Plan Assessment & Plan (1) Paroxysmal atrial fibrillation: Code(s): I48.0 - Paroxysmal atrial fibrillation Category: Medical Plan: New finding of atrial fibrillation during acute illness 10/2023. Records reviewed and it seems that AF was still persistent at time of discharge. Echocardiogram 10/31/2023 showed EF 60-65%, no regional wall motion abnormalities, left atrium and left atrium is normal size. He was not referred to Cardiology in follow-up until now. A Holter monitor was done on 04/26/2024 that showed sinus bradycardia with average heart rate 58, occasional PAC and rare PVC, 64.5% less than 60 beats per minute. EKG done today showing sinus bradycardia, heart rate 49, asymptomatic. No symptoms that indicate recurrent PAF. Chads Vasc score of 2 ( age, HTN). Anticoagulation indicated. He is currently off Eliquis due to high cost. Will have him start on Coumadin 5 mg daily with INR check on 06/25/2024. Stop aspirin. Will refer him to the anticoagulation clinic. Cardiology follow-up 6 months, sooner if needed. (2) History of cardiac cath: Comment: 05/11/19 normal Code(s): Z98.890 - Other specified postprocedural states Category: Surgical (3) Shortness of breath: Code(s): R06.02 - Shortness of breath Category: Medical Plan: Residual shortness of breath with exertion following acute illness with COVID and double pneumonia 10/2023. On exam he does not appear fluid overloaded. He has normal coronaries on last cardiac catheterization. Recent echo with normal EF. Symptom not likely to be cardiac in nature. (4) Hypertension, essential: Code(s): I10 - Essential (primary) hypertension Category: Medical Plan: Well controlled at this time. No med changes made. (5) Sinus bradycardia: Code(s): R00.1 - Bradycardia, unspecified Category: Medical Plan: Asymptomatic. Continue current metoprolol. Plan Time spent on chart review, documentation, interview, assessment Orders: Orders Prothrombin Time INR 3 Days I48.0 - Paroxysmal atrial fibrillation Referrals Anticoagulation Service/Clinic I48.0 - Paroxysmal atrial fibrillation Medications: New warfarin Take 1 tablet daily Or as directed by Anticoagulation clinic 5 mg PO DAILY 30 tabs 3RF Coding Level of Care Code Est Pt Level 4 (18354) Complex EM visit Add On G2211 Diagnoses Paroxysmal atrial fibrillation I48.0 History of cardiac cath Z98.890 Shortness of breath R06.02 Hypertension, essential I10 Sinus bradycardia R00.1 CPT Codes EKG - CPT: [id number]-[id number], Complete ([id number]) Time Spent (min) 30
== END 2024-06-21 11:11 | disposition home or self-care (01) ==
PROVIDERS: PCP Internal Medicine; Visit Provider Nurse Practitioner Family
DX: I48.0 Paroxysmal atrial fibrillation (principal); Z98.890 Other specified postprocedural states; R06.02 Shortness of breath; I10 Essential (primary) hypertension; R00.1 Bradycardia, unspecified
CPT/HCPCS: 93010; 99214; G2211

== ENCOUNTER → 2024-06-21 10:06 | Outpatient (BNVA) | payer MEDICARE, SELFPAY | PROVIDERS: PCP Internal Medicine; Visit Provider Nurse Practitioner Family | DX: I48.0 Paroxysmal atrial fibrillation (principal); R00.1 Bradycardia, unspecified; R06.02 Shortness of breath; I10 Essential (primary) hypertension; Z98.890 Other specified postprocedural states | CPT/HCPCS: 93005; 99212 ==

== ENCOUNTER → 2024-06-28 12:52 | Outpatient (REF) | payer MEDICARE, SELFPAY ==
[2024-06-28 16:29] LABS: INTERNATIONAL NORM RATIO 1.3 (0.9-1.1); Prothrombin Time 15.4 SEC (10.9-12.4)
== END ==
LOC: HO.CARD 12:52
PROVIDERS: PCP Internal Medicine; Visit Provider Nurse Practitioner Family
DX: I48.0 Paroxysmal atrial fibrillation (principal)
CPT/HCPCS: 36415; 85610

== ENCOUNTER 2024-07-05 13:35 | Outpatient (AMB) | payer MEDICARE, SELFPAY ==
[2024-07-05 14:15] LABS: Prothrombin Time Whole Bld POC 33.3 sec (11.1-13.5); ~PT, ~INR - Anti Coag Clinic 2.8 (0.9-1.1)
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
== END 2024-07-05 15:17 | disposition home or self-care (01) ==
LOC: HO.ACS 13:35
PROVIDERS: PCP Internal Medicine; Visit Provider Internal Medicine Medical Oncology
DX: Z79.01 Long term (current) use of anticoagulants (principal)

== ENCOUNTER → 2024-07-05 13:35 | Outpatient (BNVA) | payer MEDICARE, SELFPAY | PROVIDERS: PCP Internal Medicine; Visit Provider Internal Medicine Medical Oncology | DX: I48.0 Paroxysmal atrial fibrillation (principal); Z79.01 Long term (current) use of anticoagulants; Z51.81 Encounter for therapeutic drug level monitoring | CPT/HCPCS: 85610; 99212 ==

== ENCOUNTER → 2024-07-08 14:10 | Outpatient (BNVA) | payer MEDICARE, SELFPAY | PROVIDERS: PCP Internal Medicine; Visit Provider Internal Medicine Medical Oncology | DX: I48.0 Paroxysmal atrial fibrillation (principal); Z51.81 Encounter for therapeutic drug level monitoring; Z79.01 Long term (current) use of anticoagulants | CPT/HCPCS: 85610; 99212 ==

== ENCOUNTER 2024-07-13 14:00 | Outpatient (AMB) | payer MEDICARE, SELFPAY ==
[2024-07-13 14:07] LABS: Prothrombin Time Whole Bld POC 39.8 sec (11.1-13.5); ~PT, ~INR - Anti Coag Clinic 3.3 (0.9-1.1)
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
== END 2024-07-13 14:22 | disposition home or self-care (01) ==
LOC: HO.ACS 14:00
PROVIDERS: PCP Internal Medicine; Visit Provider Internal Medicine Medical Oncology
DX: Z79.01 Long term (current) use of anticoagulants (principal)

== ENCOUNTER → 2024-07-13 14:00 | Outpatient (BNVA) | payer MEDICARE, SELFPAY | PROVIDERS: PCP Internal Medicine; Visit Provider Internal Medicine Medical Oncology | DX: I48.0 Paroxysmal atrial fibrillation (principal); Z51.81 Encounter for therapeutic drug level monitoring; Z79.01 Long term (current) use of anticoagulants | CPT/HCPCS: 85610; 99211 ==

== ENCOUNTER 2024-07-16 10:40 | Outpatient (REF) | payer MEDICARE, SELFPAY ==
--- NOTE | ~2024-07-16 | MR_ITS ---
CLINICAL HISTORY: RENAL MASS MR abdomen with and without gadolinium Comparison: MR/SR - MR ABDOMEN WO/W CON - 11/07/23 15:21 EDT Findings: Complex circumscribed left renal mass is again noted and unchanged relative to the prior exam. It is heterogeneous but mostly hypointense on T2 weighted sequences and mostly hyperintense on T1 weighted sequences though chemical shift imaging demonstrates no definite evidence of fat. Subtraction images demonstrate mild enhancement superiorly on the venous phase and delayed images. Small bilateral renal cysts are noted. Once again there is pancreatic atrophy. The rest of the solid organs are unremarkable. The visualized bowel demonstrates no acute abnormalities. No ascites. The bones and soft tissues are unremarkable. IMPRESSION: Large complex circumscribed left renal mass is unchanged from the prior examination. Subtraction imaging demonstrates mild enhancement along the superior aspect of the lesion on venous phase and delayed imaging. Findings are compatible with a neoplasm. Malignancy is not excluded, and tissue diagnosis is recommended. This document has been electronically signed by: Erick Salgado MD on 07/17/2024 09:59:15
[2024-07-16] MEDS: gadobutroL 10 ML VIAL IVPUSH (11:42)
== END 2024-07-16 10:41 | disposition home or self-care (01) ==
LOC: HO.MRI 10:40
PROVIDERS: PCP Internal Medicine; Visit Provider Urology
DX: N28.89 Other specified disorders of kidney and ureter (principal); I48.0 Paroxysmal atrial fibrillation; Z51.81 Encounter for therapeutic drug level monitoring; Z79.01 Long term (current) use of anticoagulants
CPT/HCPCS: 74183; 85610; 99211; A9585

== ENCOUNTER → 2024-07-16 11:00 | Outpatient (BNV) | payer MEDICARE, SELFPAY | PROVIDERS: PCP Internal Medicine; Visit Provider Radiology Diagnostic Radiology | DX: N28.89 Other specified disorders of kidney and ureter (principal) | CPT/HCPCS: 74183 ==

== ENCOUNTER 2024-07-16 11:51 | Outpatient (AMB) | payer MEDICARE, SELFPAY ==
[2024-07-16 12:03] LABS: ~PT, ~INR - Anti Coag Clinic 4.6 (0.9-1.1)
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
== END 2024-07-16 12:11 | disposition home or self-care (01) ==
LOC: HO.ACS 11:51
PROVIDERS: PCP Internal Medicine; Visit Provider Internal Medicine Medical Oncology
DX: Z79.01 Long term (current) use of anticoagulants (principal)

== ENCOUNTER 2024-07-20 10:41 | Outpatient (AMB) | payer MEDICARE, SELFPAY ==
--- NOTE | 2024-07-20 11:41 | A.OFFVIS_ITS ---
Intake Visit Reasons: follow up/MRI Intake Note: Patient is present for MRI F/U Urology Medication:NONE Antibiotic Allergy:NONE Blood Thinner:WARFARIN Missing Persons Investigator Required: No Allergies No Known Allergies [No Known Allergies*] Allergy (Verified 07/20/24 11:42) HPI Comments Details: Romie is a pleasant male. He is a patient of Dr. Jones. He seen for the following urologic conditions - renal mass Repeat imaging Stability Radiology read with question of malignancy however mass stable since biopsy 6 months ago Plan repeat imaging in six-month Discussed potential of repeat biopsy Left renal mass Discussed imaging findings MRI - There is an exophytic T1 predominantly hyperintense and T2 heterogeneous signal intensity mass in the lateral midpole of the left kidney measuring 6.4 x 4.8 cm in axial plane and up to 5.5 cm - 07/30 Large complex circumscribed left renal mass is unchanged from the prior examination. Subtraction imaging demonstrates mild enhancement along the superior aspect of the lesion on venous phase and delayed imaging Lasix renogram - Left 52% and right 48% Left renal biopsy - 12/29 Kidney, left mass, biopsy: Scant inflamed fibrovascular tissue and abundant necrosis PFSH Surgical History Hx of tonsillectomy History of cholecystectomy History of colonoscopy History of cardiac cath Family History Father CAD (coronary artery disease) Heart attack Mother Colon cancer Brother Diabetes Social History Housing: House Alcohol intake: current Alcohol intake frequency: other (beer/liquor) Alcohol type: beer and hard liquor Tobacco use type: Cigar and Pipe Years Smoked: 20 +/- e-Cigarette/Vaping Use: Never Used service: No Current occupational status: retired 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 Current occupational exposures/hazards: No Cognitive needs: No Hearing needs: No Vision needs: Yes Review of Systems Const Denies chills and Denies fever(s) Card Reports no additional complaints and Denies syncope Resp Denies cough GI Denies abdominal pain and Denies heartburn Reports as per HPI and Denies change in libido Neuro Denies syncope Psych Denies change in libido Endo Denies change in libido Physical Exam Const General: cooperative, healthy appearing, comfortable and no acute distress Orientation/consciousness: patient oriented x3 HEENT Face and sinus: Yes normal facial exam Mouth: moist mucous membranes Neck Neck: Yes normal visual inspection, Yes full ROM and Yes trachea midline Chest Chest palpation & inspection: normal inspection of the chest Resp Effort & Inspection: normal respiratory effort, able to speak in complete sentences and no respiratory distress GI Inspection: Yes normal to inspection Back/Spine/Pelvis Cervical Spine: normal cervical lordosis Thoracic/Lumbar Spine: thoracic and lumbar spine normal to inspection Skin General skin exam: no rashes or lesions noted Neuro General: patient oriented x3, gait normal, tone normal and moves all extremities Extrem General: Yes normal to inspection and Yes capillary refill normal Assessment & Plan Assessment & Plan (1) Renal mass: Code(s): N28.89 - Other specified disorders of kidney and ureter Category: Medical Plan Repeat MRI six-month PSA Orders: Orders Prostate Specific Antigen 6 Months N28.89 - Other specified disorders of kidney and ureter Blood Urea Nitrogen 6 Months N28.89 - Other specified disorders of kidney and ureter Creatinine 6 Months N28.89 - Other specified disorders of kidney and ureter MR abdomen wo/w con 6 Months N28.89 - Other specified disorders of kidney and u reter Patient Instructions: This note is constructed using voice recognition software. While every effort has been made to ensure accuracy dental coordinator errors may have been included. Imaging studies, laboratory and physical exam results were discussed and reviewed in detail. No major barriers to patient understanding were identified. An opportunity to ask questions regarding the treatment plan was provided. All questions were answered. The patient expressed understanding and agreement with the above treatment plan. The patient is aware they should contact our office by phone for worsening of their current condition or the appearance of new urologic symptoms. Compliance is encouraged with any medications and followup testing that is ordered. It is a privilege to participate in the urologic care of your patient. If you have any questions or concerns regarding treatment for the above conditions, or other urologic issues, please do not hesitate to contact me. The office telephone contact is [phone]. Sincerely, Dr Bird Jaquez MD, [facility] - Urology Compassionate Specialist Care for the Genitourinary System Coding Level of Care Code Est Pt Level 3 (37856) Complex EM visit Add On G2211 Diagnoses Renal mass N28.89
== END 2024-07-20 12:04 | disposition home or self-care (01) ==
LOC: HO.HUSH 10:41
PROVIDERS: PCP Internal Medicine; Visit Provider Urology
DX: N28.89 Other specified disorders of kidney and ureter (principal)
CPT/HCPCS: 99213; G2211

== ENCOUNTER → 2024-07-20 10:41 | Outpatient (BNVA) | payer MEDICARE, SELFPAY | PROVIDERS: PCP Internal Medicine; Visit Provider Urology | DX: N28.89 Other specified disorders of kidney and ureter (principal) | CPT/HCPCS: 99212 ==

== ENCOUNTER 2024-07-23 10:18 | Outpatient (AMB) | payer MEDICARE, SELFPAY ==
[2024-07-23 10:38] LABS: ~PT, ~INR - Anti Coag Clinic 2.8 (0.9-1.1)
--- NOTE | 2024-07-23 10:44 | MHC.OFFVISCO ---
Intake Intake Visit Reasons: Anticoagulation Allergies No Known Allergies [No Known Allergies*] Allergy (Verified 07/23/24 10:33) Medication List - Last Reconciled 07/23/24 by Linh Stein RN acetaminophen 325 mg PO QID PRN albuterol sulfate 90 mcg/actuation (Ventolin HFA) 1 inh inhalation QID PRN 30 days metoprolol tartrate 50 mg PO BID warfarin 5 mg See Protocol PO DAILY Nursing Note INR: 2.8 in therapeutic range * pt states his previous INR may have been elevated due to stress last week Medications and supplements reviewed had MRI last week - mass on kidney unchanged - plan: another MRI 6 months to re-eval * doing better now also Denies any signs and symptoms of bleeding or bruising or clotting. Bleeding, bruising, clotting discussed Nutritional guidance given - keep up weekly greens Dose: keep same dose for now: 7.5mg mwf/ 5mg x 4 days F/U INR: 1 week Patient verbalizes understanding of instructions given Anti-Coag Initial Assessment Social Hx Tobacco use type: Cigar and Pipe alcohol intake: current Alcohol intake frequency: other (beer/liquor) Cardiovascular Hx: HTN and Arrhythmias Musculoskeletal Hx: Arthritis Hx: Kidney Disease (mass on left kidney-had bx ? results-MRI next week-seeing Dr Carter) Neurological Hx: Serious Head Injury (4yrs old-fell off porch-depressed skull fx) and Migraines/Headaches Cancer HX: No Psych. Illness/Depression: No Coding Level of Care Code Est Patient Level 1 Diagnoses Current use of anticoagulant therapy Z79.01 Results AMB INR Fingerstick AMB INR Fingerstick 2.8 Last Edit by Linh Stein RN on 07/23/24 10:43 MANUAL ENTRY Assessment & Plan Assessment & Plan (1) Current use of anticoagulant therapy: Code(s): Z79.01 - [facility] (current) use of anticoagulants Category: Medical
== END 2024-07-23 10:54 | disposition home or self-care (01) ==
LOC: HO.ACS 10:18
PROVIDERS: PCP Internal Medicine; Visit Provider Internal Medicine Medical Oncology
DX: Z79.01 Long term (current) use of anticoagulants (principal)

== ENCOUNTER → 2024-07-23 10:18 | Outpatient (BNVA) | payer MEDICARE, SELFPAY | PROVIDERS: PCP Internal Medicine; Visit Provider Internal Medicine Medical Oncology | DX: I48.0 Paroxysmal atrial fibrillation (principal); Z79.01 Long term (current) use of anticoagulants; Z51.81 Encounter for therapeutic drug level monitoring | CPT/HCPCS: 85610; 99211 ==

== ENCOUNTER 2024-07-30 11:07 | Outpatient (AMB) | payer MEDICARE, SELFPAY ==
--- NOTE | 2024-07-30 11:20 | MHC.OFFVISCO ---
Intake Intake Visit Reasons: Anticoagulation Allergies No Known Allergies [No Known Allergies*] Allergy (Verified 07/30/24 11:15) Medication List - Last Reconciled 07/30/24 by Carmita Chowdhury RN acetaminophen 325 mg PO QID PRN albuterol sulfate 90 mcg/actuation (Ventolin HFA) 1 inh inhalation QID PRN 30 days metoprolol tartrate 50 mg PO BID warfarin 5 mg See Protocol PO DAILY Nursing Note INR 3.6-?? out of therapeutic range of 2-3 Medications and supplements reviewed Patient status: no c.o Medications or supplements: no changes Diet: same Denies any signs and symptoms of bleeding or clotting or unusual bruising Bleeding, bruising, clotting discussed Nutritional guidance given: eat greens to lower Dose: reduce warfarin today to 5mg then reduce weekly dosing to 5mg x 5, 7.5mg x 2 F/U INR Date : 1 week?? Patient verbalizing understanding of instructions given. Anti-Coag Initial Assessment Social Hx Tobacco use type: Cigar and Pipe alcohol intake: current Alcohol intake frequency: other (beer/liquor) Cardiovascular Hx: HTN and Arrhythmias Musculoskeletal Hx: Arthritis Hx: Kidney Disease (mass on left kidney-had bx ? results-MRI next week-seeing Dr Carter) Neurological Hx: Serious Head Injury (4yrs old-fell off porch-depressed skull fx) and Migraines/Headaches Cancer HX: No Psych. 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
[2024-07-30 11:21] LABS: Prothrombin Time Whole Bld POC 43.6 sec (11.1-13.5); ~PT, ~INR - Anti Coag Clinic 3.6 (0.9-1.1)
== END 2024-07-30 11:29 | disposition home or self-care (01) ==
LOC: HO.ACS 11:07
PROVIDERS: PCP Internal Medicine; Visit Provider Internal Medicine Medical Oncology
DX: Z79.01 Long term (current) use of anticoagulants (principal)

== ENCOUNTER → 2024-07-30 11:07 | Outpatient (BNVA) | payer MEDICARE, SELFPAY | PROVIDERS: PCP Internal Medicine; Visit Provider Internal Medicine Medical Oncology | DX: I48.0 Paroxysmal atrial fibrillation (principal); Z79.01 Long term (current) use of anticoagulants; Z51.81 Encounter for therapeutic drug level monitoring | CPT/HCPCS: 85610; 99211 ==

== ENCOUNTER 2024-08-06 11:15 | Outpatient (AMB) | payer MEDICARE, SELFPAY ==
[2024-08-06 11:24] LABS: Prothrombin Time Whole Bld POC 40.2 sec (11.1-13.5); ~PT, ~INR - Anti Coag Clinic 3.3 (0.9-1.1)
--- NOTE | 2024-08-06 11:32 | MHC.OFFVISCO ---
Intake Intake Visit Reasons: Anticoagulation Allergies No Known Allergies [No Known Allergies*] Allergy (Verified 08/06/24 11:17) Medication List - Last Reconciled 08/06/24 by Linh Stein RN acetaminophen 325 mg PO QID PRN albuterol sulfate 90 mcg/actuation (Ventolin HFA) 1 inh inhalation QID PRN 30 days metoprolol tartrate 50 mg PO BID warfarin 5 mg See Protocol PO DAILY Nursing Note INR: 3.3 OUT of therapeutic range Medications and supplements reviewed Pt had a cold x 1 week -states he was worn down with things to do and a fishing derby / took over the counter cold meds that may have had acetominophen in them that could have raised the INR plus had decreased appetite that could raise the INR Warfarin dose was decreased last week and do to cold not able to see affect of decreased dose Denies any signs and symptoms of bleeding or bruising or clotting. Bleeding, bruising, clotting discussed Nutritional guidance given - eat greens today Dose: keep same dose and try again 7.5mg x 2 days/ 5mg x 5 days F/U INR: 1 week Patient verbalizes understanding of instructions given Anti-Coag Initial Assessment Social Hx Tobacco use type: Cigar and Pipe alcohol intake: current Alcohol intake frequency: other (beer/liquor) Cardiovascular Hx: HTN and Arrhythmias Musculoskeletal Hx: Arthritis Hx: Kidney Disease (mass on left kidney-had bx ? results-MRI next week-seeing Dr Carter) Neurological Hx: Serious Head Injury (4yrs old-fell off porch-depressed skull fx) and Migraines/Headaches Cancer HX: No Psych. 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
== END 2024-08-06 11:37 | disposition home or self-care (01) ==
LOC: HO.ACS 11:15
PROVIDERS: PCP Internal Medicine; Visit Provider Internal Medicine Medical Oncology
DX: Z79.01 Long term (current) use of anticoagulants (principal)

== ENCOUNTER → 2024-08-06 11:15 | Outpatient (BNVA) | payer MEDICARE, SELFPAY | PROVIDERS: PCP Internal Medicine; Visit Provider Internal Medicine Medical Oncology | DX: I48.0 Paroxysmal atrial fibrillation (principal); Z79.01 Long term (current) use of anticoagulants; Z51.81 Encounter for therapeutic drug level monitoring | CPT/HCPCS: 85610; 99211 ==

== ENCOUNTER 2024-08-13 10:49 | Outpatient (AMB) | payer MEDICARE, SELFPAY ==
[2024-08-13 11:10] LABS: Prothrombin Time Whole Bld POC 35.5 sec (11.1-13.5)
--- NOTE | 2024-08-13 11:15 | MHC.OFFVISCO ---
Intake Intake Visit Reasons: Anticoagulation Allergies No Known Allergies [No Known Allergies*] Allergy (Verified 08/13/24 11:05) Medication List - Last Reconciled 08/13/24 by Carole Pacheco, SERGIO acetaminophen 325 mg PO QID PRN albuterol sulfate 90 mcg/actuation (Ventolin HFA) 1 inh inhalation QID PRN 30 days metoprolol tartrate 50 mg PO BID warfarin 5 mg See Protocol PO DAILY Nursing Note INR: 3.0 in therapeutic range of 2-3 Medications and supplements reviewed No changes in health, diet, medications, or supplements, Denies any signs and symptoms of bleeding or bruising or clotting. Bleeding, bruising, clotting discussed Nutritional guidance given Dose: 5mg X 5 days and 7.5mg X 2 days (Mon & Th) F/U INR: 2 weeks Patient verbalizes understanding of instructions given Anti-Coag Initial Assessment Social Hx Tobacco use type: Cigar and Pipe alcohol intake: current Alcohol intake frequency: other (beer/liquor) Cardiovascular Hx: HTN and Arrhythmias Musculoskeletal Hx: Arthritis Hx: Kidney Disease (mass on left kidney-had bx ? results-MRI next week-seeing Dr Carter) Neurological Hx: Serious Head Injury (4yrs old-fell off porch-depressed skull fx) and Migraines/Headaches Cancer HX: No Psych. 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
== END 2024-08-13 11:17 | disposition home or self-care (01) ==
LOC: HO.ACS 10:49
PROVIDERS: PCP Internal Medicine; Visit Provider Internal Medicine Medical Oncology
DX: Z79.01 Long term (current) use of anticoagulants (principal)

== ENCOUNTER → 2024-08-13 10:49 | Outpatient (BNVA) | payer MEDICARE, SELFPAY | PROVIDERS: PCP Internal Medicine; Visit Provider Internal Medicine Medical Oncology | DX: I48.0 Paroxysmal atrial fibrillation (principal); Z79.01 Long term (current) use of anticoagulants; Z51.81 Encounter for therapeutic drug level monitoring | CPT/HCPCS: 85610; 99211 ==

== ENCOUNTER 2024-08-27 10:16 | Outpatient (AMB) | payer MEDICARE, SELFPAY ==
--- NOTE | 2024-08-27 10:25 | MHC.OFFVISCO ---
Intake Intake Visit Reasons: Anticoagulation Allergies No Known Allergies [No Known Allergies*] Allergy (Verified 08/27/24 10:17) Medication List - Last Reconciled 08/27/24 by Carole Pacheco RN acetaminophen 325 mg PO QID PRN albuterol sulfate 90 mcg/actuation (Ventolin HFA) 1 inh inhalation QID PRN 30 days metoprolol tartrate 50 mg PO BID warfarin 5 mg See Protocol PO DAILY Nursing Note INR: 2.9 in therapeutic range of 2-3 Medications and supplements reviewed No changes in health, diet, medications, or supplements, Denies any signs and symptoms of bleeding or bruising or clotting. Bleeding, bruising, clotting discussed Nutritional guidance given Dose: 5mg X 5 days and 7.5mg X 2 days (Mon & Thurs) F/U INR: 3 weeks Patient verbalizes understanding of instructions given Anti-Coag Initial Assessment Social Hx Tobacco use type: Cigar and Pipe alcohol intake: current Alcohol intake frequency: other (beer/liquor) Cardiovascular Hx: HTN and Arrhythmias Musculoskeletal Hx: Arthritis Hx: Kidney Disease (mass on left kidney-had bx ? results-MRI next week-seeing Dr Carter) Neurological Hx: Serious Head Injury (4yrs old-fell off porch-depressed skull fx) and Migraines/Headaches Cancer HX: No Psych. Illness/Depression: No Coding Level of Care Code Est Patient Level 1 Diagnoses Current use of anticoagulant therapy Z79.01 Results AMB INR Fingerstick AMB INR Fingerstick 2.9 Last Edit by Carole Pacheco RN on 08/27/24 10:22 interface delay Assessment & Plan Assessment & Plan (1) Current use of anticoagulant therapy: Code(s): Z79.01 - [facility] (current) use of anticoagulants Category: Medical
[2024-08-27 10:29] LABS: Prothrombin Time Whole Bld POC 34.8 sec (11.1-13.5); ~PT, ~INR - Anti Coag Clinic 2.9 (0.9-1.1)
== END 2024-08-27 10:27 | disposition home or self-care (01) ==
LOC: HO.ACS 10:16
PROVIDERS: PCP Internal Medicine; Visit Provider Internal Medicine Medical Oncology
DX: Z79.01 Long term (current) use of anticoagulants (principal)

== ENCOUNTER → 2024-08-27 10:16 | Outpatient (BNVA) | payer MEDICARE, SELFPAY | PROVIDERS: PCP Internal Medicine; Visit Provider Internal Medicine Medical Oncology | DX: I48.0 Paroxysmal atrial fibrillation (principal); Z79.01 Long term (current) use of anticoagulants; Z51.81 Encounter for therapeutic drug level monitoring | CPT/HCPCS: 85610; 99211 ==

== ENCOUNTER → 2024-09-17 10:25 | Outpatient (BNVA) | payer MEDICARE, SELFPAY | PROVIDERS: PCP Internal Medicine; Visit Provider Internal Medicine Medical Oncology | DX: I48.0 Paroxysmal atrial fibrillation (principal); Z79.01 Long term (current) use of anticoagulants; Z51.81 Encounter for therapeutic drug level monitoring | CPT/HCPCS: 85610; 99211 ==

== ENCOUNTER 2024-10-01 09:18 | Outpatient (AMB) | payer MEDICARE, SELFPAY ==
[2024-10-01 09:48] LABS: ~PT, ~INR - Anti Coag Clinic 2.5 (0.9-1.1)
--- NOTE | 2024-10-01 09:54 | MHC.OFFVISCO ---
Intake Intake Visit Reasons: Anticoagulation Allergies No Known Allergies (No Known Allergies*) Allergy (Verified 10/01/24 09:43) Medication List - Last Reconciled 10/01/24 by Linh Stien RN acetaminophen 325 mg PO QID PRN albuterol sulfate 90 mcg/actuation (Ventolin HFA) 1 inh inhalation QID PRN 30 days metoprolol tartrate 50 mg PO BID warfarin 5 mg See Protocol PO DAILY Nursing Note INR: 2.5 in therapeutic range Medications and supplements reviewed No changes in health, diet, medications, or supplements, Denies any signs and symptoms of bleeding or bruising or clotting. Bleeding, bruising, clotting discussed Nutritional guidance given Dose: 7.5MG X 2 DAYS/ 5MG X 5 DAYS F/U INR: 3 Weeks per pt request due to vacation day Patient verbalizes understanding of instructions given Anti-Coag Initial Assessment Social Hx Tobacco use type: Cigar and Pipe alcohol intake: current Alcohol intake frequency: other (beer/liquor) Cardiovascular Hx: HTN and Arrhythmias Musculoskeletal Hx: Arthritis Hx: Kidney Disease (mass on left kidney-had bx ? results-MRI next week-seeing Dr Carter) Neurological Hx: Serious Head Injury (4yrs old-fell off porch-depressed skull fx) and Migraines/Headaches Cancer HX: No Psych. 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
== END 2024-10-01 09:56 | disposition home or self-care (01) ==
LOC: HO.ACS 09:18
PROVIDERS: PCP Internal Medicine; Visit Provider Internal Medicine Medical Oncology
DX: Z79.01 Long term (current) use of anticoagulants (principal)

== ENCOUNTER → 2024-10-01 09:18 | Outpatient (BNVA) | payer MEDICARE, SELFPAY | PROVIDERS: PCP Internal Medicine; Visit Provider Internal Medicine Medical Oncology | DX: I48.0 Paroxysmal atrial fibrillation (principal); Z79.01 Long term (current) use of anticoagulants; Z51.81 Encounter for therapeutic drug level monitoring | CPT/HCPCS: 85610; 99211 ==

== ENCOUNTER 2024-10-25 09:11 | Outpatient (AMB) | payer MEDICARE, SELFPAY ==
[2024-10-25 09:28] LABS: Prothrombin Time Whole Bld POC 32.3 sec (11.1-13.5); ~PT, ~INR - Anti Coag Clinic 2.7 (0.9-1.1)
--- NOTE | 2024-10-25 09:32 | MHC.OFFVISCO ---
Intake Intake Visit Reasons: Anticoagulation Allergies No Known Allergies (No Known Allergies*) Allergy (Verified 10/25/24 09:23) Medication List - Last Reconciled 10/25/24 by Carole Pacheco, RN acetaminophen 325 mg PO QID PRN albuterol sulfate 90 mcg/actuation (Ventolin HFA) 1 inh inhalation QID PRN 30 days metoprolol tartrate 50 mg PO BID warfarin 5 mg See Protocol PO DAILY Nursing Note INR: 2.7 in therapeutic range of 2-3 Medications and supplements reviewed No changes in health, diet, medications, or supplements, Denies any signs and symptoms of bleeding or bruising or clotting. Bleeding, bruising, clotting discussed Nutritional guidance given Dose: 5mg X 5 days and 7.5mg X 2 days F/U INR: 4 weeks Patient verbalizes understanding of instructions given Anti-Coag Initial Assessment Social Hx Tobacco use type: Cigar and Pipe alcohol intake: current Alcohol intake frequency: other (beer/liquor) Cardiovascular Hx: HTN and Arrhythmias Musculoskeletal Hx: Arthritis Hx: Kidney Disease (mass on left kidney-had bx ? results-MRI next week-seeing Dr Carter) Neurological Hx: Serious Head Injury (4yrs old-fell off porch-depressed skull fx) and Migraines/Headaches Cancer HX: No Psych. 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
== END 2024-10-25 09:35 | disposition home or self-care (01) ==
LOC: HO.ACS 09:11
PROVIDERS: PCP Internal Medicine; Visit Provider Internal Medicine Medical Oncology
DX: Z79.01 Long term (current) use of anticoagulants (principal)

== ENCOUNTER → 2024-10-25 09:11 | Outpatient (BNVA) | payer MEDICARE, SELFPAY | PROVIDERS: PCP Internal Medicine; Visit Provider Internal Medicine Medical Oncology | DX: I48.0 Paroxysmal atrial fibrillation (principal); Z79.01 Long term (current) use of anticoagulants; Z51.81 Encounter for therapeutic drug level monitoring | CPT/HCPCS: 85610; 99211 ==

== ENCOUNTER 2024-10-27 12:16 | Outpatient (REF) | payer MEDICARE, SELFPAY ==
[2024-10-27 16:34] LABS: MANUAL DIFF FLAG NO
[2024-10-27 16:39] LABS: Hematocrit 40.7 % (42.0-52.0); Hemoglobin 13.5 g/dl (14.0-18.0); Imm Gran Abs Auto 0.02 X10*3/uL (0.00-0.03); Imm Gran Pct Auto 0.3 % (0.0-0.4); Lymphocytes Absolute Auto 1.5 X10*3/uL (1.2-4.9); Mean Corpuscular HGB Conc 33.2 g/dl (31.0-36.0); Mean Corpuscular Hemoglobin 29.3 pg (27.0-33.0); Mean Corpuscular Volume 88.3 fL (80.0-98.0); NRBC Abs Auto 0.000 X10*3/uL (0.0-0.012); NRBC Pct Auto 0.0 /100WBC (0.0-0.2); Platelet Count 203 X10*3/uL (160-400); Red Blood Count 4.61 X10*6/uL (4.60-5.80); White Blood Count 6.8 X10*3/uL (4.8-10.8)
[2024-10-27 16:53] LABS: Hemoglobin A1C 139.0577 umol/L; Total Hemoglobin (HGBA1C) 3545.4993 umol/L
[2024-10-27 16:59] LABS: Alanine Aminotransferase 18 U/L (0-40); Albumin Level 3.9 g/dL (3.5-5.0); Alkaline Phosphatase 100 U/L (39-117); Anion Gap 11 (12-20); Aspartate Amino Transferase 25 U/L (5-37); Blood Urea Nitrogen 23 mg/dL (9-16); Calcium 8.8 mg/dL (8.4-10.2); Carbon Dioxide 28 mmol/L (22-29); Chloride 108 mmol/L (96-108); Cholesterol 192 mg/dL (<200); Estimated Glomerular Filt Rate > 60; HDL Cholesterol 37 mg/dL (>40); Potassium 4.7 mmol/L (3.3-5.1); Sodium 142 mmol/L (135-145); Total Protein 6.6 g/dL (6.5-8.0); Triglycerides 120 mg/dL (<150)
[2024-10-31 16:23] LABS: Vitamin D 25-OH, D2 <4 ng/mL; Vitamin D 25-OH, D3 26 ng/mL; Vitamin D 25-OH, Total 26 ng/mL (30-100)
== END 2024-10-27 12:17 | disposition home or self-care (01) ==
LOC: HO.HMGCLDS 12:16
PROVIDERS: PCP Internal Medicine; Visit Provider Internal Medicine
DX: Z00.01 Encounter for general adult medical examination with abnormal findings (principal); I48.0 Paroxysmal atrial fibrillation; D50.8 Other iron deficiency anemias; E66.01 Morbid (severe) obesity due to excess calories; Z68.35 Body mass index [BMI] 35.0-35.9, adult; R73.01 Impaired fasting glucose; I10 Essential (primary) hypertension; Z79.01 Long term (current) use of anticoagulants; Z79.899 Other long term (current) drug therapy; Z13.30 Encounter for screening examination for mental health and behavioral disorders, unspecified; Z13.31 Encounter for screening for depression
CPT/HCPCS: 36415; 80053; 80061; 82306; 83036; 84443; 85025; 96127; 99397

== ENCOUNTER 2024-10-27 12:16 | Outpatient (AMB) | payer MEDICARE, SELFPAY ==
--- NOTE | 2024-10-27 12:22 | MHC.PC.OV ---
Vital Signs 10/27/24 12:24 Height 6 ft Weight 281 lb BMI 38.1 BP 130/78 Blood Pressure Location Lt brachial Position Sitting Respiration 16 Pulse 50 Pulse Source Pulse Oximeter Temp 98.1 F Temp Source Oral Pulse Oximetry (%) 97 Oxygen Delivery Method Room Air Intake Visit Reasons: Annual PE - see comments Deckhand Required: No Accompanied by: Self / Same As Patient Allergies No Known Allergies (No Known Allergies*) Allergy (Verified 10/27/24 12:25) Medication List - Last Reconciled 10/27/24 by Raudel Jones MD acetaminophen 325 mg PO QID PRN albuterol sulfate 90 mcg/actuation (Ventolin HFA) 1 inh inhalation QID PRN 30 days metoprolol tartrate 50 mg PO BID warfarin 5 mg See Protocol PO DAILY Tobacco use date assessed: 10/27/24 Fall risk assessment: No Falls in past year Last assessed Fall Risk: 10/27/24 Dental Screening Dental Screen Date: 04/20/24 Did you have a dental visit in the last 12 months?: No Did you have a dental problem in the last 6 months where you did not have access to dental care?: No Was dental information given to patient?: Patient declined HPI Annual PE - see comments HPI Details History of Present Illness - The patient is a 74-year-old male presenting for an annual physical examination. - He reports occasional lightheadedness but not consistent. - Past cardiology consultation noted with heart rates around 49-50 bpm. - History of hypertension and hyperlipidemia is documented, both under ornamental iron worker's care. - Last normal cardiac catheterization was in May of 2019. - He has a past diagnosis of paroxysmal atrial fibrillation. - Anemia indicated with hemoglobin of 12.8 noted from December of last year. - Patient has been on Metoprolol for rate control due to atrial fibrillation. - The patient underwent a colonoscopy approximately five years ago, next 1 is due in 2025 - Family history includes diabetes. Medical History: - Essential Hypertension - Hyperlipidemia - Impaired Fasting Glucose - Paroxysmal Atrial Fibrillation - Anemia Social History: - Retired status reported, no active employment - Reports enjoying food, which has affected his weight management Family History: - Brother had diabetes Health Maintenance - Pneumonia vaccine received in February 2024 - Tetanus immunization received in 2008 - Shingles vaccine not yet administered - Last colonoscopy approximately five years ago - Regular dermatologic check-ups reported [facility] Medications - Metoprolol 50 mg for rate control in atrial fibrillation - Warfarin for anticoagulation in atrial fibrillation Diagnostic results - Labs: Slight anemia noted with hemoglobin 12.8 in previous CBC (December) - Electrolytes and kidney functions were reportedly normal in May of this year Patient Instructions - Repeat fasting labs can be done today if the patient has not yet eaten - Patient advised to follow up on colonoscopy scheduling - Suggest medication consultation with ornamental iron worker to review heart rate management Follow-up 1 year for physical exam Review of Systems - General: No fever no chills - Neurological: No headaches no dizziness - Ear nose throat: No sore throat no hearing difficulty no ear pain - Cardiovascular: No syncope, no chest pain, no palpitations - Gastrointestinal: No nausea vomiting or diarrhea - Endocrine: No polyuria polydipsia no heat intolerance - Genitourinary: No dysuria - Skin: No new complaints Physical Exam General: Cooperative, healthy appearing, comfortable, no acute distress Orientation: Patient oriented x3 Head: Normal to inspection Ears: Within normal limit visually Nose: Normal external nose present Face and sinus: Normal facial exam Eyes: Appearance normal, extraocular movement intact pupils reactive Neck: Normal visual inspection and supple Respiratory: Normal respiratory effort and able to speak in complete sentences. Clear to auscultation, no stridor Cardiovascular: S1 and S2 RRR, heart rate GI: Normal to inspection. Soft to palpation and nontender, no pain in the belly, no nausea or vomiting Skin: Turgor normal, no acute finding Neuro: Patient oriented x3, motor sensory intact, balance pretty good, tandem pass Extremities: Minimal ankle swelling PFSH Surgical History Hx of tonsillectomy History of cholecystectomy History of colonoscopy History of cardiac cath Family History Father CAD (coronary artery disease) Heart attack Mother Colon cancer Brother Diabetes Social History Housing: House Alcohol intake: current Alcohol intake frequency: other (beer/liquor) Alcohol type: beer and hard liquor Patient Tobacco Use Status: Former Tobacco user Tobacco use type: Cigar and Pipe Years Smoked: 20 +/- e-Cigarette/Vaping Use: Never Used service: No Current occupational status: retired 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 1. Little interest or pleasure in doing things: not at all 2. Feeling down, depressed, or hopeless: not at all 3. Trouble falling or staying asleep, or sleeping too much: not at all 4. Feeling tired or having little energy: not at all 5. Poor appetite or overeating: not at all 6. Feeling bad about yourself - or that you are a failure or have let yourself or your family down: not at all 7. Trouble concentrating on things, such as reading the newspaper or watching television: not at all 8. Moving or speaking so slowly that other people could have noticed. Or the opposite - being so fidgety or restless that you have been moving around a lot more than usual: not at all 9. Thoughts that you would be better off or of hurting yourself in some way: not at all Total score: 0 Depression Screening Interpretation: Negative Depression Screening Done: Yes 11305 - PHQ-9 Billing: Yes Source: Developed by Drs. Alen River, Guillermina Meza, Zheng Nova and colleagues, with an educational alison from [employer]. Thrive Questionnaire Date Thrive assessed: 04/13/24 I am a: Patient What is your living situation today?: I have a steady place to live Within the past 12 months, did the food you bought not last and you didn't have the money to get more?: Never true Within the past 12 months, did you worry whether your food would run out before you got money to buy more?: Never true Do you have trouble paying for medicines?: No Do you have trouble getting transportation to medical appointments?: No Do you have trouble paying your heating and electricity bill?: No Do you have trouble taking care of your child, family member or friend?: No Do you have trouble with day-to-day activities such as bathing, preparing meals, shopping, managing finances, etc.?: No Are you currently unemployed and looking for a job?: No Are you interested in more education?: No Please select the resources that you would like help with: None Currently or been in a relationship where the following occur: No concerns reported THRIVE Score: 0 RUSSELL-7 AMB Questionnaire RUSSELL-7 Date RUSSELL - 7 assessed: 10/27/24 Feeling nervous, anxious, or on edge: 0 = Not at all Not being able to stop or control worryin = Not at all Worrying too much about different things: 0 = Not at all Trouble relaxin = Not at all Being so restless that it is hard to sit still: 0 = Not at all Becoming easily annoyed or irritable: 0 = Not at all Feeling afraid as if something awful might happen: 0 = Not at all Total RUSSELL-7 score (0-4 normal; 5-9 mild; 10-14 moderate; 15-21 severe): 0 Source: Developed by Drs. Alen River, Guillermina Meza, Zheng Nova and colleagues, with an educational alison from [employer]. RUSSELL-7 Assessment Billing RUSSELL-7 Assessment Tool: RUSSELL-7 Assessment 79754 Physical exam (Primary Care) Vital Signs: Last Vital Signs Temp 98.1 F 10/27/24 12:24 Pulse 50 10/27/24 12:24 Resp 16 10/27/24 12:24 BP 130/78 10/27/24 12:24 Pulse Ox 97 10/27/24 12:24 Oxygen Delivery Method Room Air 10/27/24 12:24 BMI result Body Mass Index 38.1 Tobacco/Smoking Status: Tobacco use Status Tobacco use date assessed 10/27/24 10/27/24 12:29 Patient Tobacco Use Status Former Tobacco user 10/27/24 12:29 Tobacco use type Pipe,Cigar 10/27/24 12:29 e-Cigarette/Vaping Use Never Used 10/27/24 12:29 PHQ-9: PHQ-9 Score PHQ-9: Total score 0 10/27/24 12:50 Depression Screening Interpretation: Negative Thrive Assessment: Date of Thrive Assessment Date Thrive assessed 04/13/24 10/27/24 12:29 Currently or been in a relationship where the following occur: No concerns reported Coding Level of Care Code Est Pt Level 3 (83411) Est Pt Prev Care >65y(53320) Diagnoses Encounter for general adult medical examination with abnormal findings Z00.01 Paroxysmal atrial fibrillation I48.0 Other iron deficiency anemia D50.8 Iron deficiency anemia type: other iron deficiency Class 2 severe obesity due to excess calories with serious comorbidity and body mass index (BMI) of 35.0 to 35.9 in adult E66.01; Z68.35 Body mass index: BMI 35.0-35.9 Obesity classification: adult class 2 (BMI 35 - 39.9) Serious obesity comorbidity presence: with serious comorbidity Impaired fasting blood sugar R73.01 Hypertension, essential I10 Current use of anticoagulant therapy Z79.01 Additional Codes RUSSELL-7 Assessment Billing - RUSSELL-7 Assessment Tool: RUSSELL-7 Assessment 93415 ([id number]) PHQ-9 - 59408 - PHQ-9 Billing: Yes ([id number]) Assessment & Plan Assessment & Plan (1) Encounter for general adult medical examination with abnormal findings: Code(s): Z00.01 - Encounter for general adult medical examination with abnormal findings Category: Medical (2) Paroxysmal atrial fibrillation: Code(s): I48.0 - Paroxysmal atrial fibrillation Category: Medical (3) Anemia, iron deficiency: Code(s): D50.9 - Iron deficiency anemia, unspecified Category: Medical Qualifiers: Iron deficiency anemia type: other iron deficiency Qualified Code(s): D50.8 - Other iron deficiency anemias (4) Obesity due to excess calories: Code(s): E66.09 - Other obesity due to excess calories Category: Medical Qualifiers: Body mass index: BMI 35.0-35.9 Obesity classification: adult class 2 (BMI 35 - 39.9) Serious obesity comorbidity presence: with serious comorbidity Qualified Code(s): E66.01 - Morbid (severe) obesity due to excess calories; Z68.35 - Body mass index [BMI] 35.0-35.9, adult (5) Impaired fasting blood sugar: Code(s): R73.01 - Impaired fasting glucose Category: Medical (6) Hypertension, essential: Code(s): I10 - Essential (primary) hypertension Category: Medical (7) Current use of anticoagulant therapy: Code(s): Z79.01 - ocean transportation intermediary (current) use of anticoagulants Category: Medical Plan History of Present Illness - The patient is a 74-year-old male presenting for an annual physical examination. - He reports occasional lightheadedness but not consistent. - Past cardiology consultation noted with heart rates around 49-50 bpm. - History of hypertension and hyperlipidemia is documented, both under ornamental iron worker's care. - Last normal cardiac catheterization was in May of 2019. - He has a past diagnosis of paroxysmal atrial fibrillation. - Anemia indicated with hemoglobin of 12.8 noted from December of last year. - Patient has been on Metoprolol for rate control due to atrial fibrillation. - The patient underwent a colonoscopy approximately five years ago, next 1 is due in 2025 - Family history includes diabetes. Medical History: - Essential Hypertension - Hyperlipidemia - Impaired Fasting Glucose - Paroxysmal Atrial Fibrillation - Anemia Social History: - Retired status reported, no active employment - Reports enjoying food, which has affected his weight management Family History: - Brother had diabetes Health Maintenance - Pneumonia vaccine received in February 2024 - Tetanus immunization received in 2008 - Shingles vaccine not yet administered - Last colonoscopy approximately five years ago - Regular dermatologic check-ups reported [facility] Medications - Metoprolol 50 mg for rate control in atrial fibrillation - Warfarin for anticoagulation in atrial fibrillation Diagnostic results - Labs: Slight anemia noted with hemoglobin 12.8 in previous CBC (December) - Electrolytes and kidney functions were reportedly normal in May of this year Patient Instructions - Repeat fasting labs can be done today if the patient has not yet eaten - Patient advised to follow up on colonoscopy scheduling - Suggest medication consultation with ornamental iron worker to review heart rate management Follow-up 1 year for physical exam Orders: Orders Complete Blood Count Auto Diff Today D50.8 - Other iron deficiency anemias, E66.01 - Morbid (severe) obesity due to excess calories, I10 - Essential (primary) hypertension, I48.0 - Paroxysmal atrial fibrillation, R73.01 - Impaired fasting glucose, Z00.01 - Encounter for general adult medical examination with abnormal findings, Z68.35 - Body mass index [BMI] 35.0-35.9, adult, Z79.01 - ocean transportation intermediary (current) use of anticoagulants Comprehensive [place]. Panel Fast Today D50.8 - Other iron deficiency anemias, E66.01 - Morbid (severe) obesity due to excess calories, I10 - Essential (primary) hypertension, I48.0 - Paroxysmal atrial fibrillation, R73.01 - Impaired fasting glucose, Z00.01 - Encounter for general adult medical examination with abnormal findings, Z68.35 - Body mass index [BMI] 35.0-35.9, adult, Z79.01 - ocean transportation intermediary (current) use of anticoagulants Lipid Panel Today D50.8 - Other iron deficiency anemias, E66.01 - Morbid (severe) obesity due to excess calories, I10 - Essential (primary) hypertension, I48.0 - Paroxysmal atrial fibrillation, R73.01 - Impaired fasting glucose, Z00.01 - Encounter for general adult medical examination with abnormal findings, Z68.35 - Body mass index [BMI] 35.0-35.9, adult, Z79.01 - ocean transportation intermediary (current) use of anticoagulants Vitamin D 25-OH (D2 and D3) Today D50.8 - Other iron deficiency anemias, E66.01 - Morbid (severe) obesity due to excess calories, I10 - Essential (primary) hypertension, I48.0 - Paroxysmal atrial fibrillation, R73.01 - Impaired fasting glucose, Z00.01 - Encounter for general adult medical examination with abnormal findings, Z68.35 - Body mass index [BMI] 35.0-35.9, adult, Z79.01 - ocean transportation intermediary (current) use of anticoagulants TSH reflex Free T4 Today D50.8 - Other iron deficiency anemias, E66.01 - Morbid (severe) obesity due to excess calories, I10 - Essential (primary) hypertension, I48.0 - Paroxysmal atrial fibrillation, R73.01 - Impaired fasting glucose, Z00.01 - Encounter for general adult medical examination with abnormal findings, Z68.35 - Body mass index [BMI] 35.0-35.9, adult, Z79.01 - ocean transportation intermediary (current) use of anticoagulants Hemoglobin A1c Today D50.8 - Other iron deficiency anemias, E66.01 - Morbid (severe) obesity due to excess calories, I10 - Essential (primary) hypertension, I48.0 - Paroxysmal atrial fibrillation, R73.01 - Impaired fasting glucose, Z00.01 - Encounter for general adult medical examination with abnormal findings, Z68.35 - Body mass index [BMI] 35.0-35.9, adult, Z79.01 - ocean transportation intermediary (current) use of anticoagulants
[2024-10-27 12:24] VITALS: BP 130/78; PULSE 50; RESP 16; TEMP 36.7; O2SAT 97; BMI 38.1
== END 2024-10-27 12:52 | disposition home or self-care (01) ==
PROVIDERS: PCP Internal Medicine; Visit Provider Internal Medicine
DX: Z00.00 Encounter for general adult medical examination without abnormal findings (principal); I48.0 Paroxysmal atrial fibrillation; E66.01 Morbid (severe) obesity due to excess calories; Z68.35 Body mass index [BMI] 35.0-35.9, adult; D50.8 Other iron deficiency anemias; R73.01 Impaired fasting glucose; I10 Essential (primary) hypertension; Z79.01 Long term (current) use of anticoagulants

== ENCOUNTER 2024-11-19 09:51 | Outpatient (AMB) | payer MEDICARE, SELFPAY ==
[2024-11-19 09:59] LABS: Prothrombin Time Whole Bld POC 27.1 sec (11.1-13.5); ~PT, ~INR - Anti Coag Clinic 2.3 (0.9-1.1)
--- NOTE | 2024-11-19 10:06 | MHC.OFFVISCO ---
Intake Intake Visit Reasons: Anticoagulation Allergies No Known Allergies (No Known Allergies*) Allergy (Verified 11/19/24 09:52) Medication List - Last Reconciled 11/19/24 by Frances Hammond RN acetaminophen 325 mg PO QID PRN albuterol sulfate 90 mcg/actuation (Ventolin HFA) 1 inh inhalation QID PRN 30 days metoprolol tartrate 50 mg PO BID warfarin 5 mg See Protocol PO DAILY Nursing Note NO CP,SOB,DIET/MED CHANGES,FALLS OR SX OF BLEEDING. CONTINUE PRESENT DOSING AND FOLLOW-UP IN 4 WEEKS GOOD UNDERSTANDING OF DOSING INSTR. Anti-Coag Initial Assessment Social Hx Patient Tobacco Use Status: Former Tobacco user Tobacco use type: Cigar and Pipe alcohol intake: current Alcohol intake frequency: other (beer/liquor) Cardiovascular Hx: HTN and Arrhythmias Musculoskeletal Hx: Arthritis Hx: Kidney Disease (mass on left kidney-had bx ? results-MRI next week-seeing Dr Carter) Neurological Hx: Serious Head Injury (4yrs old-fell off porch-depressed skull fx) and Migraines/Headaches Cancer HX: No Psych. 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
== END 2024-11-19 10:07 | disposition home or self-care (01) ==
LOC: HO.ACS 09:51
PROVIDERS: PCP Internal Medicine; Visit Provider Internal Medicine Medical Oncology
DX: Z79.01 Long term (current) use of anticoagulants (principal)

== ENCOUNTER → 2024-11-19 09:51 | Outpatient (BNVA) | payer MEDICARE, SELFPAY | PROVIDERS: PCP Internal Medicine; Visit Provider Internal Medicine Medical Oncology | DX: Z51.81 Encounter for therapeutic drug level monitoring (principal); Z79.01 Long term (current) use of anticoagulants | CPT/HCPCS: 85610; 99211 ==

== ENCOUNTER 2024-12-17 13:28 | Outpatient (AMB) | payer MEDICARE, SELFPAY ==
--- NOTE | 2024-12-17 13:47 | MHC.OFFVISCO ---
Intake Intake Visit Reasons: Anticoagulation Allergies No Known Allergies (No Known Allergies*) Allergy (Verified 12/17/24 13:33) Medication List - Last Reconciled 12/17/24 by Linh Stein RN acetaminophen 325 mg PO QID PRN albuterol sulfate 90 mcg/actuation (Ventolin HFA) 1 inh inhalation QID PRN 30 days metoprolol tartrate 50 mg PO BID warfarin 5 mg See Protocol PO DAILY Nursing Note INR: 2.8 in therapeutic range Medications and supplements reviewed No changes in health, diet, medications, or supplements, Denies any signs and symptoms of bleeding or bruising or clotting. Bleeding, bruising, clotting discussed Nutritional guidance given Dose: Keep same dose 7.5mg x 2 days/ 5mg x 5 days F/U INR: 4 weeks Patient verbalizes understanding of instructions given Anti-Coag Initial Assessment Social Hx Patient Tobacco Use Status: Former Tobacco user Tobacco use type: Cigar and Pipe alcohol intake: current Alcohol intake frequency: other (beer/liquor) Cardiovascular Hx: HTN and Arrhythmias Musculoskeletal Hx: Arthritis Hx: Kidney Disease (mass on left kidney-had bx ? results-MRI next week-seeing Dr Carter) Neurological Hx: Serious Head Injury (4yrs old-fell off porch-depressed skull fx) and Migraines/Headaches Cancer HX: No Psych. Illness/Depression: No Coding Level of Care Code Est Patient Level 1 Diagnoses Current use of anticoagulant therapy Z79.01 Results AMB INR Fingerstick AMB INR Fingerstick 2.8 Last Edit by Linh Stein RN on 12/17/24 13:43 manual entry Assessment & Plan Assessment & Plan (1) Current use of anticoagulant therapy: Code(s): Z79.01 - intermediate (current) use of anticoagulants Category: Medical Medications: New cholecalciferol (vitamin D3) PO
[2024-12-17 13:55] LABS: Prothrombin Time Whole Bld POC 33.0 sec (11.1-13.5); ~PT, ~INR - Anti Coag Clinic 2.8 (0.9-1.1)
== END 2024-12-17 13:49 | disposition home or self-care (01) ==
LOC: HO.ACS 13:28
PROVIDERS: PCP Internal Medicine; Visit Provider Internal Medicine Medical Oncology
DX: Z79.01 Long term (current) use of anticoagulants (principal)

== ENCOUNTER → 2024-12-17 13:28 | Outpatient (BNVA) | payer MEDICARE, SELFPAY | PROVIDERS: PCP Internal Medicine; Visit Provider Internal Medicine Medical Oncology | DX: R00.1 Bradycardia, unspecified (principal); I48.0 Paroxysmal atrial fibrillation; R06.02 Shortness of breath; R07.9 Chest pain, unspecified; Z98.890 Other specified postprocedural states; E78.5 Hyperlipidemia, unspecified; I10 Essential (primary) hypertension; Z79.01 Long term (current) use of anticoagulants | CPT/HCPCS: 85610; 93005; 99211; 99212 ==

== ENCOUNTER 2024-12-17 13:51 | Outpatient (AMB) | payer MEDICARE, SELFPAY ==
[2024-12-17 14:01] VITALS: BP 140/72; PULSE 51; BMI 37.9
--- NOTE | 2024-12-17 14:01 | MHC.OFFVIS ---
Vital Signs 12/17/24 14:01 Height 6 ft Weight 279 lb 4 oz BMI 37.9 BP 140/72 H Blood Pressure Location Lt brachial Position Sitting Pulse 51 Pulse Source Monitor Intake Visit Reasons: 6 mth f/up Correctional Officer Required: No Accompanied by: Self / Same As Patient Allergies No Known Allergies (No Known Allergies*) Allergy (Verified 12/17/24 13:33) Medication List - Last Reconciled 12/17/24 by Donita Schilling NP-C acetaminophen 325 mg PO QID PRN albuterol sulfate 90 mcg/actuation (Ventolin HFA) 1 inh inhalation QID PRN 30 days cholecalciferol (vitamin D3) PO metoprolol tartrate 50 mg PO BID warfarin 5 mg See Protocol PO DAILY HPI HPI 6 mth f/up: Details: Wiley is a 74-year-old male with past medical history of hypertension, hyperlipidemia, impaired fasting glucose, normal cardiac catheterization 05/2019, paroxysmal atrial fibrillation who presents for follow-up. Today he reports that he has been doing generally well since his last visit in June. He will feel occasional fluttering in his chest that will last seconds. No sustained rapid heart rates. He will get a very localized pain in his left chest that is not new but now travels over to the right side of his chest. The episodes occur randomly and can last a few sec before resolving. It can occur during activity and rest. He does have shortness of breath with exertional activities which is not new but he feels it may be increasing. No PND, orthopnea or edema. No lightheadedness, presyncope, syncope. He is physically active throughout each day. He is on Coumadin and follows with the [facility] [place] anticoagulation Clinic. No bleeding issues reported. 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 Current occupational exposures/hazards: No Cognitive needs: No Hearing needs: No Vision needs: Yes Review of Systems Const Denies chills, Denies fatigue, Denies fever(s), Denies frequent falls, Denies weakness, Denies weight gain and Denies weight loss ENT Denies dizziness Card Reports chest pain, Reports chest pain at rest, Reports chest pain with activity, Denies leg edema, Denies lightheadedness, Reports palpitations, Denies dyspnea and Denies dyspnea on exertion Resp Denies cough, Denies dyspnea and Denies dyspnea on exertion GI Denies hematochezia Musc Denies abnormal gait, Denies muscle weakness, Denies numbness, Denies radiating pain into limb and Denies tingling Neuro Denies abnormal gait, Denies dizziness, Denies frequent falls, Denies numbness, Denies tingling and Denies weakness Endo Denies fatigue and Reports palpitations Physical Exam Vital Signs: Last Vital Signs Pulse 51 12/17/24 14:01 BP 140/72 H 12/17/24 14:01 BMI result Body Mass Index 17.4 Results AMB INR Fingerstick AMB INR Fingerstick 2.8 Last Edit by Linh Stein RN on 12/17/24 13:43 manual entry Assessment & Plan Assessment & Plan (1) Paroxysmal atrial fibrillation: Code(s): I48.0 - Paroxysmal atrial fibrillation Category: Medical Plan: Newer finding of paroxysmal atrial fibrillation, 10/2023.Echocardiogram 10/31/2023 showed EF 60-65%, no regional wall motion abnormalities, left atrium and left atrium is normal size. Holter monitor was done on 04/26/2024 that showed sinus bradycardia with average heart rate 58, occasional PAC and rare PVC, 64.5% less than 60 beats per minute. EKG done today showing sinus bradycardia, heart rate 51, asymptomatic. He will notice brief fluttering in his chest at times. Also reporting shortness of breath and atypical chest discomfort. Heart rates are low and he is on metoprolol. Will check an exercise stress test to evaluate for chronotropic incompetence, also assess for ischemia and blood pressure response to exercise.. Funmi Vasc score of 2. Continue Coumadin for anticoagulation. INR goal 2-3. Continue to follow with [facility] [place] anticoagulation clinic. Cardiology follow-up 6 months, sooner if needed. (2) History of cardiac cath: Comment: 05/11/19 normal Code(s): Z98.890 - Other specified postprocedural states Category: Surgical (3) Chest discomfort: Code(s): R07.89 - Other chest pain Category: Medical Plan: Atypical sounding chest discomfort, rest and with activity. Also reports of shortness of breath with activity. Not likely to have ischemia as he had normal cardiac catheterization in 2020. Will be checking ETT as above. I have asked him to take his metoprolol the morning before his test. (4) Shortness of breath: Code(s): R06.02 - Shortness of breath Category: Medical Plan: Acute illness with COVID and double pneumonia 10/2023. Following that he was reporting shortness of breath with exertion. He continues to report this symptom. He does not appear fluid overloaded on exam. Prior echo and cardiac catheterization were normal. Will further evaluate with exercise stress test. (5) Hypertension, essential: Code(s): I10 - Essential (primary) hypertension Category: Medical Plan: Blood pressure goal less than 130/80. Mildly elevated today. Will re-evaluate during stress test. No med changes made. (6) Sinus bradycardia: Code(s): R00.1 - Bradycardia, unspecified Category: Medical Plan: EKG and Holter showing sinus bradycardia. Checking ETT to evaluate for chronotropic competence. Continue current metoprolol. Plan Time spent on chart review, documentation, interview, assessment Coding Level of Care Code Est Pt Level 4 (03994) Complex EM visit Add On G2211 Diagnoses Paroxysmal atrial fibrillation I48.0 History of cardiac cath Z98.890 Chest discomfort R07.89 Shortness of breath R06.02 Hypertension, essential I10 Sinus bradycardia R00.1
== END 2024-12-17 14:30 | disposition home or self-care (01) ==
LOC: HO.HCS 13:52
PROVIDERS: PCP Internal Medicine; Visit Provider Nurse Practitioner Family
DX: I48.0 Paroxysmal atrial fibrillation (principal); Z98.890 Other specified postprocedural states; R07.89 Other chest pain; R06.02 Shortness of breath; I10 Essential (primary) hypertension; R00.1 Bradycardia, unspecified
CPT/HCPCS: 93010; 99214; G2211

== ENCOUNTER 2025-01-11 11:10 | Outpatient (REF) | payer MEDICARE, SELFPAY ==
[2025-01-11 12:27] LABS: Blood Urea Nitrogen 20 mg/dL (9-16); Estimated Glomerular Filt Rate > 60
[2025-01-11 12:46] LABS: Prostate Specific Antigen 0.76 ng/mL (<0.05-4.0)
== END 2025-01-11 11:11 | disposition home or self-care (01) ==
LOC: HO.LAB 11:10
PROVIDERS: PCP Internal Medicine; Visit Provider Urology
DX: N28.89 Other specified disorders of kidney and ureter (principal); Z12.5 Encounter for screening for malignant neoplasm of prostate
CPT/HCPCS: 36415; 82565; 84153; 84520

== ENCOUNTER → 2025-01-14 08:35 | Outpatient (BNV) | payer MEDICARE, SELFPAY | PROVIDERS: PCP Internal Medicine; Visit Provider Radiology Diagnostic Radiology | DX: R93.422 Abnormal radiologic findings on diagnostic imaging of left kidney (principal); N28.1 Cyst of kidney, acquired | CPT/HCPCS: 74183 ==

== ENCOUNTER 2025-01-14 08:41 | Outpatient (REF) | payer MEDICARE, SELFPAY ==
--- NOTE | ~2025-01-14 | MR_ITS ---
CLINICAL HISTORY: N28.89 - Other specified disorders of kidney and ureter --- Additional Notes or Special Instructions: MRI renal mass protocol MR abdomen with and without gadolinium Comparison: 07/16/2024 Findings: Benign right renal cysts are again noted. Several small cysts are seen on the left as well. The patient is status post cholecystectomy. There is pancreatic atrophy with chronic dilatation of the pancreatic duct within the tail. Heterogeneous circumscribed mass is again noted within the left kidney which appears slightly enlarged relative to the prior exam. Previously the lesion measured 5.2 x 6.4 x 6.2 cm and currently it measures 5.8 x 6.8 x 6.2 cm. The lesion does not significantly enhance nor does not contain any fat. No ascites. IMPRESSION: Slightly enlarged left renal mass contains proteinaceous material and demonstrates no appreciable enhancement. Its features suggest a likely benign lesion such as a complex proteinaceous cyst however it should be followed again in 6 months. This document has been electronically signed by: Erick Salgado MD on 01/15/2025 13:15:28
== END 2025-01-14 08:42 | disposition home or self-care (01) ==
LOC: HO.MRI 08:41
PROVIDERS: PCP Internal Medicine; Visit Provider Urology
DX: N28.89 Other specified disorders of kidney and ureter (principal)
CPT/HCPCS: 74183; A9585

== ENCOUNTER 2025-01-14 10:03 | Outpatient (AMB) | payer MEDICARE, SELFPAY ==
--- NOTE | 2025-01-14 10:37 | MHC.OFFVISCO ---
Intake Intake Visit Reasons: Anticoagulation Allergies No Known Allergies (No Known Allergies*) Allergy (Verified 01/14/25 10:33) Medication List - Last Reconciled 01/14/25 by Carmita Chowdhury RN acetaminophen 325 mg PO QID PRN albuterol sulfate 90 mcg/actuation (Ventolin HFA) 1 inh inhalation QID PRN 30 days cholecalciferol (vitamin D3) PO metoprolol tartrate 50 mg PO BID warfarin 5 mg See Protocol PO DAILY Nursing Note INR: 2.8- in therapeutic range 2-3 Medications and supplements reviewed- no changes in medications No changes in health, diet, medications, or supplements, Denies any signs and symptoms of bleeding or bruising or clotting. Bleeding, bruising, clotting discussed Nutritional guidance given Dose: 7.5mg x 2, 5mg x 5 F/U INR:4 weeks ]Patient verbalizes understanding of instructions given pt states MRI of kidney today Anti-Coag Initial Assessment Social Hx Patient Tobacco Use Status: Former Tobacco user Tobacco use type: Cigar and Pipe alcohol intake: current Alcohol intake frequency: other (beer/liquor) Cardiovascular Hx: HTN and Arrhythmias Musculoskeletal Hx: Arthritis Hx: Kidney Disease (mass on left kidney-had bx ? results-MRI next week-seeing Dr Carter) Neurological Hx: Serious Head Injury (4yrs old-fell off porch-depressed skull fx) and Migraines/Headaches Cancer HX: No Psych. Illness/Depression: No Coding Level of Care Code Est Patient Level 1 Diagnoses Current use of anticoagulant therapy Z79.01 Results AMB INR Fingerstick AMB INR Fingerstick 2.8 Last Edit by Carmita Chowdhury RN on 01/14/25 10:40 interface delay Assessment & Plan Assessment & Plan (1) Current use of anticoagulant therapy: Code(s): Z79.01 - terminal carman (current) use of anticoagulants Category: Medical
[2025-01-14 14:01] LABS: Prothrombin Time Whole Bld POC 33.1 sec (11.1-13.5); ~PT, ~INR - Anti Coag Clinic 2.8 (0.9-1.1)
== END 2025-01-14 10:51 | disposition home or self-care (01) ==
LOC: HO.ACS 10:03
PROVIDERS: PCP Internal Medicine; Visit Provider Internal Medicine Medical Oncology
DX: Z79.01 Long term (current) use of anticoagulants (principal)

== ENCOUNTER 2025-01-21 14:32 | Outpatient (AMB) | payer MEDICARE, SELFPAY ==
--- NOTE | 2025-01-21 15:16 | MHC.OFFVIS ---
Intake Visit Reasons: 6M renal MRI follow up Intake Note: Patient is present for 6mo renal MRI F/U Urology Medication:NONE Antibiotic Allergy:NONE Blood Thinner:WARFARIN MRI done: 01/15/25 Nephrology Social Worker Required: No Accompanied by: Self / Same As Patient Allergies No Known Allergies (No Known Allergies*) Allergy (Verified 03/11/25 10:00) HPI Comments Details: Romie is a pleasant male. He is a patient of Dr. Jones. He seen for the following urologic conditions - renal mass Repeat imaging Stability Large proteinaceous cyst Twelve month follow-up Left renal mass Discussed imaging findings MRI - There is an exophytic T1 predominantly hyperintense and T2 heterogeneous signal intensity mass in the lateral midpole of the left kidney measuring 6.4 x 4.8 cm in axial plane and up to 5.5 cm - 07/30 Large complex circumscribed left renal mass is unchanged from the prior examination. Subtraction imaging demonstrates mild enhancement along the superior aspect of the lesion on venous phase and delayed imaging - 01/29 MRI left renal mass contains proteinaceous material and demonstrates no appreciable enhancement. Its features suggest a likely benign lesion such as a complex proteinaceous cyst Lasix renogram - Left 52% and right 48% Left renal biopsy - 12/29 Kidney, left mass, biopsy: Scant inflamed fibrovascular tissue and abundant necrosis PFSH Medical History (Updated 04/05/25 @ 10:34 by Bird Jaquez MD) Renal mass, left Renal mass Surgical History Hx of tonsillectomy History of cholecystectomy History of colonoscopy History of cardiac cath Family History Father CAD (coronary artery disease) Heart attack Mother Colon cancer Brother Diabetes Social History Housing: House Alcohol intake: current Alcohol intake frequency: other (beer/liquor) Alcohol type: beer and hard liquor Patient Tobacco Use Status: Former Tobacco user Tobacco use type: Cigar and Pipe Years Smoked: 20 +/- e-Cigarette/Vaping Use: Never Used service: No Current occupational status: retired 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 Current occupational exposures/hazards: No Cognitive needs: No Hearing needs: No Vision needs: Yes Review of Systems Const Denies chills and Denies fever(s) Card Reports no additional complaints and Denies syncope Resp Denies cough GI Denies abdominal pain and Denies heartburn Reports as per HPI and Denies change in libido Neuro Denies syncope Psych Denies change in libido Endo Denies change in libido Physical Exam Const General: cooperative, healthy appearing, comfortable and no acute distress Orientation/consciousness: patient oriented x3 HEENT Face and sinus: Yes normal facial exam Mouth: moist mucous membranes Neck Neck: Yes normal visual inspection, Yes full ROM and Yes trachea midline Chest Chest palpation & inspection: normal inspection of the chest Resp Effort & Inspection: normal respiratory effort, able to speak in complete sentences and no respiratory distress GI Inspection: Yes normal to inspection Back/Spine/Pelvis Cervical Spine: normal cervical lordosis Thoracic/Lumbar Spine: thoracic and lumbar spine normal to inspection Skin General skin exam: no rashes or lesions noted Neuro General: patient oriented x3, gait normal, tone normal and moves all extremities Extrem General: Yes normal to inspection and Yes capillary refill normal Assessment & Plan Assessment & Plan (1) Renal cyst: Code(s): N28.1 - Cyst of kidney, acquired Category: Medical Plan One year follow-up imaging Orders: Orders MR abdomen wo/w con 1 Year N28.89 - Other specified disorders of kidney and ureter Patient Instructions: This note is constructed using voice recognition software. While every effort has been made to ensure accuracy monitor car operator errors may have been included. Imaging studies, laboratory and physical exam results were discussed and reviewed in detail. No major barriers to patient understanding were identified. An opportunity to ask questions regarding the treatment plan was provided. All questions were answered. The patient expressed understanding and agreement with the above treatment plan. The patient is aware they should contact our office by phone for worsening of their current condition or the appearance of new urologic symptoms. Compliance is encouraged with any medications and followup testing that is ordered. It is a privilege to participate in the urologic care of your patient. If you have any questions or concerns regarding treatment for the above conditions, or other urologic issues, please do not hesitate to contact me. The office telephone contact is [phone]. Sincerely, Dr Bird Jaquez MD, [facility] - Urology Compassionate Specialist Care for the Genitourinary System Coding Level of Care Code Est Pt Level 3 (33619) Add On Problem Visit Only Diagnoses Renal cyst N28.1
== END 2025-01-21 15:37 | disposition home or self-care (01) ==
LOC: HO.HUSH 14:33
PROVIDERS: PCP Internal Medicine; Visit Provider Urology
DX: N28.1 Cyst of kidney, acquired (principal)
CPT/HCPCS: 99213; G2211

== ENCOUNTER → 2025-01-21 14:32 | Outpatient (BNVA) | payer MEDICARE, SELFPAY | PROVIDERS: PCP Internal Medicine; Visit Provider Urology | DX: Z71.2 Person consulting for explanation of examination or test findings (principal); N28.1 Cyst of kidney, acquired | CPT/HCPCS: 99212 ==

== ENCOUNTER → 2025-02-03 07:59 | Outpatient (REF) | payer MEDICARE, SELFPAY ==
--- NOTE | 2025-02-03 08:01 | CA_ITS ---
Acquisition Time: 2025-02-03 08:02:33 Total Exercise Time: 00:04:44 Test Indications: CHEST PAIN, SOB Medications: Protocol: TERRIE Max HR: 150 BPM 101% of Pred: 148 BPM Max BP: 178/74 mmHG Max Work Load: 6.6 METS Exercise stress test with exercise 4 mins 44 secs of Terrie Protocol, achieving 73% MPHR, requested to stop trreadmill due to severe SOB, with lightheadedness, as we stopped, HR increased to 127, no chest pain, with isolated PACs and PVCs, with normotenisve response to exercise. Without any EKG changes meeting criteria for ischemia. In recovery, pt's breathing returned to baseline and lightheadedness improved. Test reviewed with Dr. Sethi. Referred By: Donita Schilling Electronically Signed By: Ketan Rome
== END ==
LOC: HO.CARD 07:59
PROVIDERS: PCP Internal Medicine; Visit Provider Nurse Practitioner Family
DX: I48.0 Paroxysmal atrial fibrillation (principal); R00.1 Bradycardia, unspecified; R07.89 Other chest pain; I10 Essential (primary) hypertension; R06.02 Shortness of breath
CPT/HCPCS: 93017

== ENCOUNTER → 2025-02-03 08:01 | Outpatient (BNV) | payer MEDICARE, SELFPAY | PROVIDERS: PCP Internal Medicine | DX: I49.1 Atrial premature depolarization (principal); I49.3 Ventricular premature depolarization; R06.02 Shortness of breath | CPT/HCPCS: 93016; 93018 ==

== ENCOUNTER 2025-02-11 09:52 | Outpatient (AMB) | payer MEDICARE, SELFPAY ==
[2025-02-11 10:33] LABS: Prothrombin Time Whole Bld POC 31.4 sec (11.1-13.5); ~PT, ~INR - Anti Coag Clinic 2.6 (0.9-1.1)
--- NOTE | 2025-02-11 10:37 | MHC.OFFVISCO ---
Intake Intake Visit Reasons: Anticoagulation Allergies No Known Allergies (No Known Allergies*) Allergy (Verified 02/11/25 10:28) Medication List - Last Reconciled 02/11/25 by Carole Pacheco, RN acetaminophen 325 mg PO QID PRN albuterol sulfate 90 mcg/actuation (Ventolin HFA) 1 inh inhalation QID PRN 30 days cholecalciferol (vitamin D3) PO metoprolol tartrate 50 mg PO BID warfarin 5 mg See Protocol PO DAILY Nursing Note INR: 2.6 in therapeutic range of 2-3 Medications and supplements reviewed No changes in health, diet, medications, or supplements, Denies any signs and symptoms of bleeding or bruising or clotting. Bleeding, bruising, clotting discussed Nutritional guidance given Dose: 5mg X 5 days and 7.5mg X 2 days F/U INR: 4 weeks Patient verbalizes understanding of instructions given Anti-Coag Initial Assessment Social Hx Patient Tobacco Use Status: Former Tobacco user Tobacco use type: Cigar and Pipe alcohol intake: current Alcohol intake frequency: other (beer/liquor) Cardiovascular Hx: HTN and Arrhythmias Musculoskeletal Hx: Arthritis Hx: Kidney Disease (mass on left kidney-had bx ? results-MRI next week-seeing Dr Carter) Neurological Hx: Serious Head Injury (4yrs old-fell off porch-depressed skull fx) and Migraines/Headaches Cancer HX: No Psych. Illness/Depression: No Coding Level of Care Code Est Patient Level 1 Diagnoses Current use of anticoagulant therapy Z79.01 Assessment & Plan Assessment & Plan (1) Current use of anticoagulant therapy: Code(s): Z79.01 - FDC (current) use of anticoagulants Category: Medical
== END 2025-02-11 11:00 | disposition home or self-care (01) ==
LOC: HO.ACS 09:52
PROVIDERS: PCP Internal Medicine; Visit Provider Internal Medicine Medical Oncology
DX: Z79.01 Long term (current) use of anticoagulants (principal)

== ENCOUNTER → 2025-02-11 09:52 | Outpatient (BNVA) | payer MEDICARE, SELFPAY | PROVIDERS: PCP Internal Medicine; Visit Provider Internal Medicine Medical Oncology | DX: Z79.01 Long term (current) use of anticoagulants (principal) | CPT/HCPCS: 85610; 99211 ==

== ENCOUNTER 2025-03-11 09:56 | Outpatient (AMB) | payer MEDICARE, SELFPAY ==
[2025-03-11 10:05] LABS: Prothrombin Time Whole Bld POC 33.2 sec (11.1-13.5); ~PT, ~INR - Anti Coag Clinic 2.8 (0.9-1.1)
--- NOTE | 2025-03-11 10:24 | MHC.OFFVISCO ---
Intake Intake Visit Reasons: Anticoagulation Allergies No Known Allergies (No Known Allergies*) Allergy (Verified 03/11/25 10:00) Medication List - Last Reconciled 03/11/25 by Carole Pacheco RN acetaminophen 325 mg PO QID PRN albuterol sulfate 90 mcg/actuation (Ventolin HFA) 1 inh inhalation QID PRN 30 days cholecalciferol (vitamin D3) PO metoprolol tartrate 50 mg PO BID warfarin 5 mg See Protocol PO DAILY Nursing Note INR: 2.8 in therapeutic range of 2-3 Medications and supplements reviewed No changes in health, diet, medications, or supplements, Denies any signs and symptoms of bleeding or bruising or clotting. Bleeding, bruising, clotting discussed Nutritional guidance given Dose: 5mg X 5 days and 7.5mg X 2 days (Mon & Th) F/U INR: 4 weeks Patient verbalizes understanding of instructions given Anti-Coag Initial Assessment Social Hx Patient Tobacco Use Status: Former Tobacco user Tobacco use type: Cigar and Pipe alcohol intake: current Alcohol intake frequency: other (beer/liquor) Cardiovascular Hx: HTN and Arrhythmias Musculoskeletal Hx: Arthritis Hx: Kidney Disease (mass on left kidney-had bx ? results-MRI next week-seeing Dr Carter) Neurological Hx: Serious Head Injury (4yrs old-fell off porch-depressed skull fx) and Migraines/Headaches Cancer HX: No Psych. Illness/Depression: No Coding Level of Care Code Est Patient Level 1 Diagnoses Current use of anticoagulant therapy Z79.01 Results AMB INR Fingerstick AMB INR Fingerstick 2.8 Last Edit by Carole Pacheco RN on 03/11/25 10:05 interface delay Assessment & Plan Assessment & Plan (1) Current use of anticoagulant therapy: Code(s): Z79.01 - prison (current) use of anticoagulants Category: Medical
== END 2025-03-11 10:25 | disposition home or self-care (01) ==
LOC: HO.ACS 09:56
PROVIDERS: PCP Internal Medicine; Visit Provider Internal Medicine Medical Oncology
DX: Z79.01 Long term (current) use of anticoagulants (principal)

== ENCOUNTER → 2025-03-11 09:56 | Outpatient (BNVA) | payer MEDICARE, SELFPAY | PROVIDERS: PCP Internal Medicine; Visit Provider Internal Medicine Medical Oncology | DX: Z79.01 Long term (current) use of anticoagulants (principal) | CPT/HCPCS: 85610; 99211 ==